=== PATIENT | female | born 1940 | race Caucasian/White ===

== ENCOUNTER 2024-12-14 21:04 | Outpatient (CLI) | payer MEDICARE, BC, SELFPAY | END 2024-12-14 21:05 | disposition home or self-care (01) | PROVIDERS: PCP Family Medicine; Visit Provider Family Medicine | DX: R41.82 Altered mental status, unspecified (principal) | CPT/HCPCS: A0425; A0427 ==

== ENCOUNTER 2024-12-14 21:44 | Inpatient (IN) | payer MEDICARE, BC, SELFPAY ==
[2024-12-14] VITALS (20 sets, daily range): BP systolic 159–212; BP diastolic 74–167; PULSE 66–81; RESP 12–25; TEMP 36.4; O2SAT 95–98; BMI 30.8
--- OUTSIDE RECORDS SUMMARY | 2024-12-14 21:46 | XMS_ITS | Clinical Summary ---
Author Organization [facility] Address [address] [place] [id number] Care Team Providers Care Prisoner Classification Interviewer Name Role Phone Meg Oconnell DO Primary Care Provider [phone] Allergies Active Allergy Reactions Criticality Noted Date Comments Lisinopril Cough Low 06/24/2013 cough Medications ASPIRIN 81 MG TAB, DELAYED RELEASEIndications: Unspecified essential hypertension Once daily 0 8 Active naproxen (ALEVE) 220 mg tablet Take 1 tablet by mouth every 12 hours if needed. 0 2 Active lancets (ACCU-CHEK MULTICLIX LANCET)Indications: Type II or unspecified type diabetes mellitus without mention of complication, not stated as uncontrolled (HC) Test once daily 102 Each 3 4 Active cholecalciferol (VITAMIN D-3) 2,000 unit capsule Take 1 capsule by mouth once daily. 0 7 Active cyanocobalamin (VITAMIN B12) 500 mcg tabletIndications:B 12 deficiency Take 1 tablet by mouth once daily. 90 tablet 1 0 Active blood-glucose meterIndications:Ty pe 2 diabetes mellitus with diabetic neuropathy, without long-term current use of insulin (HC) Dispense meter, test strips, lancets covered by pt ins. E11.9 NIDDM type II - Test 1 time/day 1 Device 1 Active durable medical equipment (DME)Indications:Ch ronic pain of right ankle,Posterior tibial tendon dysfunction (PTTD) of right lower extremity,Pes planus of both feet,Sinus tarsi syndrome of right foot Air lift, PTTD brace, medium, right, Ref: 02PMR 1 Each 1 Active blood sugar diagnostic (Contour Next Test Strips) stripIndications:Ty pe 2 diabetes mellitus with diabetic neuropathy, without long-term current use of insulin (HC) TEST 1 TIME A DAY 100 Each 3 1 Active atenoloL (TENORMIN) 50 mg tabletIndications:E ssential hypertension Take 1 Tablet (50 mg) by mouth once daily. 90 Tablet 3 5 Active chlorthalidone (HYGROTON) 25 mg tabletIndications:E ssential hypertension Take 1 Tablet (25 mg) by mouth once daily. 90 Tablet 3 5 Active cloNIDine HCL (CATAPRES) 0.2 mg tabletIndications:E ssential hypertension Take 1 Tablet (0.2 mg) by mouth two times daily. 180 Tablet 3 5 Active losartan (COZAAR) 100 mg tabletIndications:E ssential hypertension Take 1 Tablet (100 mg) by mouth once daily. 90 Tablet 3 5 Active potassium chloride (Klor-Con M20) 20 mEq extended-release tablet (part/cryst)Indicat ions:Essential hypertension TAKE 1 TABLET BY MOUTH ONCE DAILY WITH A MEAL. TAKE EXTRA TABLET TWICE A WEEK IF NEEDED. 30 Tablet 5 Active pravastatin (PRAVACHOL) 10 mg tabletIndications:H yperlipidemia, unspecified hyperlipidemia type Take 1 Tablet (10 mg) by mouth at bedtime. 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 Unspecified hereditary and idiopathic peripheral neuropathy 03/15/2009 Actinic keratosis 03/02/2008 Overview (03/02/2008): Left forearm. Treated with N2 on 03/02/08 Osteoporosis 03/02/2008 Overview (07/26/2015): DEXA 2016 - Osteoporosis dexa 12/2006, normal except for one reading of -1.2 in hips, all others normal. Recheck 10-15 years. Unspecified essential hypertension 12/19/2006 Lipoma of other skin and subcutaneous tissue 05/2006 Overview (12/19/2006): lipoma left breast, biopsy on 12/28/05 Resolved Problems Problem Noted Date Diagnosed Date Resolved Date Vitamin D deficiency 03/15/2009 010 Encounters Date Type Department Care Team Description 12/13/2024 Refill [facility] [address] [place] [address] Meg Oconnell DO Refill Request (Klor-con M20) 09/26/2024 10:00 AM CDT Ancillary Procedure [facility] [address] [place] [address] 09/26/2024 Travel from Last 3 Months Immunizations Immunization Administration Dates Next Due COVID-19 VACCINE SPIKEVAX (M ODERNA 50MCG/0.5ML) 12YO+ PFS 07/09/2024,06/27/2023 COVID-19 vaccine (Pfizer-Bio NTech 30mcg/0.3mL) 12YO+ BIVALENT PF, MDV 03/17/2022 COVID-19 vaccine (Pfizer-Bio NTech 30mcg/0.3mL) PF, MDV 04/21/2021,08/10/2020,07/20/2020 Hepatitis A (Adult) 11/17/1999 Hepatitis B, Unspecified 06/29/2001,01/23/2001,0 12/21/2000 Influenza, High-dose Inactivated 018,03/02/2017,04/18/2016,2015,04/12/2015,04/22/2014 Influenza, High-dose Quadriv alent Inactivated 03/17/2022 Influenza, IIV3 (Age >=3 years) 03/11/20 13,02/05/2012,05/03/2011,2009,03/02/2008,03/05/2007 Influenza, IIV4 03/02/2020 Influenza, Inactivated AIIV4 (Age 65+ Years) Preserv Free 06/27/2023,04/21/2021,03/15/2020 Influenza, Inactivated IIV3 (Age 65+ Years) Preserv Free 07/09/2024,04/07/2019,03/14/2019 Pneumococcal Poly,23-Valent (Pneumovax) 12/13/2005 Pneumococcal conj 13-Valent (Prevnar 13) 04/05/2017,06/19/2014 Td (Age >=7 Years) 03/25/2003,09/19/1996 Tdap 05/03/2011 Zoster (Zostavax-ZVL, live) 10/14/2014 Family History Medical History Relation Name Comments Blood Disease Brother 2 brain anuerysm 2000 Blood Disease Father pulmonary embo lism 1971 Cancer-breast Mother Cancer-breast Other niece Relation Name Status Comments Brother 1 Brother 2 Father Mother Other Sister Alive Social History Tobacco Use Types Packs/Day Years Used Date Smoking Tobacco: Never Smokeless Tobacco: Never Tobacco Cessation:Counseling Given: Yes Alcohol Use Standard Drinks/Week Comments Yes 0 (1 standard drink = 0.6 oz pur e alcohol) occasional PHQ-2 Answer Date Recorded PHQ-2 TOTAL SCORE 0 07/09/2024 Social Connections Answer Date Recorded Do you often feel lonely or isolated from those around you? 0 07/09/2024 Financial Resource Strain Answer Date R ecorded Difficulty of Paying Living Expenses 3 07/09/2024 Difficulty of Paying Living Expenses Not on file 07/09/2024 Food Insecurity Answer Date Recorded Do you worry your food will run out before you are able to buy more? 1 07/09/2024 Transportation Needs Answer Date Record ed Does lack of transportation keep you from medica l appointments? 1 07/09/2024 Does lack of transportation keep you from work, meetings or getting things that you need? 1 07/09/2024 Housing Stability Answer Date Recorded What is your housing situation today? 1 07/09/2024 Utilities Answer Date Recorded Do you have trouble paying f or utilities (for example, heat, electricity, water, phone)? 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 Not on file Not on f ile Obstetrics History Para Term AB IAB SAB Ectopic Multiple Livin g Live Births 10 10 10 Date Outcome GA Total Labor Labor/2nd/3rd Weight Sex Type Anes PTL Reina A1 A5 Name Clin Para Para Para Para Para Para Para Para Para Para Last Filed Vital Signs Vital Sign Reading Time Taken Comments Blood Pressure 142/84 09/10/2024 10:11 AM CDT Pulse 65 09/10/2024 10:11 AM CDT Temperature 36.7 C (98.1 F) 09/18/2018 10:06 AM CDT Respiratory Rate 18 07/12/2015 10:12 AM [employer] Oxygen Saturation 99% 09/10/2024 10:11 AM CDT Inhaled Oxygen Concentration - - Weight 84.4 kg (186 lb) 09/10/2024 10:11 AM CDT Height 168.4 cm (5' 6.3) 07/09/2024 1:08 PM [employer] Body Mass Index 29.75 07/09/2024 1:08 PM [employer] Plan of Treatment Health Maintenance Due Date Last Done Comments Zoster (shingles) series for age 50+ (2 of 3) 12/09/2014 10/14/2014 RSV vaccine for adults or (1 - 1-dose 75+ series) 02/24/2015 Tetanus booster 05/03/2021 05/03/2011, 11/0 09/2002, 09/19/1996 COVID-19 vaccine series ( season) 2025 07/09/2024, 06/27/2023, 03/17/2022, Additional history exists Influenza Vaccine (#1) 2025 , 06/27/2023, 04/21/2021, Additional history exists BMI (ht and wt on same day) for age 18+ 07/09/2025 07/09/2024, 06/27/2023, 06/14/2022, Additional history exists Depression screening for age 12+ 07/09/2025 07/09/2024, 06/27/2023, 06/14/2022, Additional history exists Medicare Wellness for age 65+ 07/10/2025, 06/27/2023, 06/14/2022, Additional history exists Hepatitis B series for 19+ Completed 06/29, 01/23/2001, 12/21/2000 Pneumococcal series for age 50+ Completed 04/05/2017, 06/19/2014, 12/13/2005 DEXA/DXA scan for age 65+ Completed 2022, 07/15/2015, 12/27/2006 Procedures Procedure Name Priority Date/Time Associated Diagnosis Comments XR MAMMO NEHA BILAT SCREEN Routine 09/26/2024 10:15 AM CDT Visit for screening mammogram XR DXA BONE DENSITY 2 SITES AXIAL AND 1 SITE PERIPHERAL Routine 06/14/2022 12:20 PM [employer] Osteoporosis, unspecified osteoporosis type, unspecified pathological fracture presence from Last 3 Months or Most Recently Relevant to Health Maintenance Results * XR MAMMO NEHA BILAT SCREEN (09/26/2024 10:15 AM CDT) Anatomical Region Laterality Modality BREASTS, Breast Left, Breast Right Bilateral Mammography Impressions 09/26/2024 2:14 PM CDT There is no radiographic evidence for malignancy. Recommend annual mammograms. MAMMOGRAM ASSESSMENT: ACR 1 Negative PATIENTS: You will also receive a letter with your examination results in an easy to read format. If you have questions about your results, please contact your referring provider. Narrative 09/26/2024 2:14 PM CDT For Patients: As a result of the 21st Century Cures Act, medical imaging exams and procedure reports are released immediately into your electronic medical record. You may view this report before your referring provider. If you have questions, please contact your health care provider. XR MAMMO NEHA BILAT SCREEN [[id number]] CLINICAL HISTORY: This is an asymptomatic 84 y.o. patient. INDICATION FOR EXAM: Mammogram Screening. TECHNIQUE: CC and MLO views were obtained. This study was evaluated with the assistance of Computer-Aided Detection. Breast Tomosynthesis was used in interpretation. COMPARISON FILM: Yes 07/26/23 [facility] 11/06/19 [facility] FINDINGS: There are scattered areas of fibroglandular density. There are no dominant masses, suspicious micro calcifications or areas of architectural distortion. us Meg Oconnell DO MAMMO Final Result * (ABNORMAL) XR DXA BONE DENSITY 2 SITES AXIAL AND 1 SITE PERIPHERAL (06/14/2022 12:20 PM [employer]) Anatomical Region Laterality Modality LUMBAR SPINE Other Impressions 06/20/2022 7:52 AM [employer] Osteopenia. RECOMMENDATIONS: The National Osteoporosis Foundation recommends pharmacologic treatment for patients with T-scores of -2.5 or less, patients with prior history of fragility fractures, or patients with 10-year probability of greater than 3% at hips or greater than 20% of suffering major osteoporotic fractures. Recommend continued optimization of calcium and vitamin D intake through dietary means and/or supplementation and regular exercise. Repeat scan recommended in 3-5 years. Dariana Suárez PA-C [facility] 06/20/2022 Narrative 06/20/2022 7:52 AM [employer] For Patients: Results are automatically released to your [facility] account once available, in compliance with federal regulations. This means that you may see your results before your provider has had a chance to review them. Please allow 2-3 business days for your provider to comment on the results. XR DXA Bone Mineral Density (BMD) EXAM LOCATION: [address] [address] PATIENT NAME: Makayla Casas DATE OF : 1940 EXAM DATE: 06/14/2022 REQUESTING PROVIDER: Meg Oconnell DO GENDER AT : female HEIGHT: 5' 6.26 (06/14/2022) WEIGHT: 202 lb (06/14/2022) MENOPAUSAL STATUS: Postmenopausal RACE/ETHNICITY: White RISK FACTORS: Height Loss (2 inches or more) and White Race CURRENT MEDICATION FOR BONE LOSS: NONE INDICATION: Follow-up of existing osteoporosis and Post-Menopause COMPARISON DATE(S): 2015 DXA scans are compared to prior studies for a patient only when the two (or more) studies were performed on the same scanner. It is not possible to compare data generated on one scanner to data from another because there are not standards in DXA equipment. This applies even if the two scanners are made by the same cold roll inspector. PROCEDURE: Dual-energy x-ray absorptiometry performed with routine technique. Reporting is completed in the form of a T-score. The T-score represents the standard deviation from peak bone mass based on young healthy adult. A Z-score is used for diagnosis in premenopausal women, and for men under the age of 50. FINDINGS: RESULTS FEMUR Left femoral neck BMD: 0.741 g/cm2 T-Score: - 2.1 Z-Score: - 0.6 Change from prior in 2016: Decrease 3.0%. Right femoral neck BMD: 0.729 g/cm2 T-Score: - 2.2 Z-Score: - 0.7 Change from prior in 2016: Increase 10.1%. Left hip BMD: 0.791 g/cm2 T-Score: - 1.7 Z-Score: - 0.4 Change from prior in 2016: Decrease 6.6%. Right hip BMD: 0.795 g/cm2 T-Score: - 1.7 Z-Score: - 0.3 Change from prior in 2016: Increase 1.9%. RESULT FOREARM Left Forearm distal radius BMD: 0.509 g/cm2 T-Score: - 2.7 Z-Score: + 0.2 Change from prior: None WHO criteria: Normal: T-score at or above -1 SD Osteopenia: T-score between -1.1 and -2.4 SD Osteoporosis: T-score at or below -2.5 SD FRAX RISK CALCULATION (USED FOR OSTEOPENIA ONLY): 10-year probability of major osteoporotic fracture: 15.7%. 10-year probability of hip fracture: 5.0%. Meg Oconnell DO DEXA Final Result from Last 3 Months or Most Recently Relevant to Health Maintenance Insurance [employer] BLUE MR PB ONLY Care Teams Prisoner Classification Interviewer Relationship Specialty Start Date End Date Meg Oconnell DO [address] [place] [address] PCP - General Family Practice 12/01/22
--- OUTSIDE RECORDS SUMMARY | 2024-12-14 21:46 | XMS_ITS | Patient Health Record ---
Author Organization [facility] Address [address] [place] [address] Care Team Providers Care Supervisor Feed House Name Role Phone LEIDA STREETER Primary Care Provider Reason For Referral No Information Problems Problem Type SNOMED Code ICD Code Onset Dates Problem Status W/U Status Risk Notes Problem Primary hyperparathyroidism (44936205) Primary hyperparathyroidism (E21.0) 2014 Active confirmed [facility] [place] 3310- Plan Of Treatment No Information Insurance Providers Payer Name Payer Address Payer Phone Subscriber Number Group Number Insured Name Patient Relationship to Insured Coverage Start Date Coverage End Date [place] P[place]/PPC/FE P [address] [place] [address] [id number] Makayla Casas Self - patient is the insured MEDICARE [address] [place] [address] [id number] Makayla Casas Self - patient is the insured [place] P[place]/PPC/FE P [address] [place] [address] [phone] [id number] Makayla Casas Self - patient is the insured
--- NOTE | 2024-12-14 21:47 | CRLHL7_ITS ---
For Patients: As a result of the Century Cures Act, medical imaging exams and procedure reports are released immediately into your electronic medical record. You may view this report before your referring provider. If you have questions, please contact your health care provider. Indication: Slurring of speech and facial droop, resolved Technique: Noncontrast CT through the head with multiplanar reformats Comparison: None Findings: Brain: No acute hemorrhage. No acute infarct. No significant mass effect or midline shift. No gross evidence of a mass lesion or cerebral edema. There is a chronic appearing right temporal lobe infarct. Mild chronic sinus disease. Ventricles: No acute abnormality appreciated. Orbits, sinuses, mastoids: No acute abnormality appreciated. Calvarium and soft tissues: No acute abnormality appreciated. Impression: Chronic appearing right temporal lobe infarct and chronic senescent changes with no acute appearing intracranial abnormality appreciated. MRI recommended for further evaluation. Please note that all CT scans at this facility use dose modulation, iterative reconstruction, and/or weight-based dosing when appropriate to reduce radiation dose to as low as reasonably achievable. Dictated by Sven Leroy MD @ 12/14/2024 10:15:48 PM (Electronically Signed)
--- NOTE | 2024-12-14 22:38 | CRLHL7_ITS ---
For Patients: As a result of the Century Cures Act, medical imaging exams and procedure reports are released immediately into your electronic medical record. You may view this report before your referring provider. If you have questions, please contact your health care provider. INDICATION: Acute stroke, slurred speech, left facial droop. TECHNIQUE: CTA neck with contrast bolus tracking, 3D angiographic rendering using maximum intensity projection (MIP) and images permanently archived. FINDINGS: There is carotid atherosclerosis bilaterally. There is atherosclerotic plaque in the proximal right ICA resulting in a moderate stenosis, 60% by NASCET. There is atherosclerotic plaque in the proximal left ICA resulting in a mild stenosis, less than 50% by NASCET. There is no significant vertebral artery stenosis or dissection. The soft tissues of the neck are within normal limits. The cervical spine is in normal alignment. Degenerative changes are noted in the cervical spine. IMPRESSION: Moderate proximal right ICA stenosis, 60% by NASCET. Mild proximal left ICA stenosis, less than 50% by NASCET. Please note that all CT scans at this facility use dose modulation, iterative reconstruction, and/or weight-based dosing when appropriate to reduce radiation dose to as low as reasonably achievable. Dictated by Luis Miguel Cid MD @ 12/15/2024 6:16:47 AM (Electronically Signed)
--- NOTE | 2024-12-14 22:38 | CRLHL7_ITS ---
For Patients: As a result of the Century Cures Act, medical imaging exams and procedure reports are released immediately into your electronic medical record. You may view this report before your referring provider. If you have questions, please contact your health care provider. INDICATION: Acute stroke, slurred speech, left facial droop. TECHNIQUE: CTA head with contrast bolus tracking, 3D angiographic rendering using maximum intensity projection (MIP) and images permanently archived. FINDINGS: There is a short-segment thromboembolic occlusion of the anterior right M2 with perhaps partially occlusive thrombus in the posterior right M2. The intracranial left carotid and posterior circulations fill normally. No aneurysm is identified. IMPRESSION: Short-segment thromboembolic occlusion of the anterior right M2 with perhaps partially occlusive thrombus in the posterior right M2. Preliminary findings were reported to Dr. Garcia at 2325 hours on 12/14/2024. Please note that all CT scans at this facility use dose modulation, iterative reconstruction, and/or weight-based dosing when appropriate to reduce radiation dose to as low as reasonably achievable. Dictated by Luis Miguel Cid MD @ 12/15/2024 6:11:47 AM (Electronically Signed)
[2024-12-14 22:48] LABS: Chloride* 104 mmol/L (96-114); Hematocrit 36.7 % (33.0-51.0); Hemoglobin* 12.3 gm/dL (12.0-16.0); Immature Granulocytes Abs Auto 0.06 K/uL (0.00-0.30); Immature Granulocytes Pct Auto 1.1 %; Mean Corpuscular HGB Conc 34 gm/dL (32-36); Mean Corpuscular Hemoglobin 28 pg (26-34); Mean Corpuscular Volume 85 fL (80-100); RDW Coefficient of Variation % 13.5 % (11.5-15.5); Red Blood Count 4.34 m/uL (4.00-5.20); White Blood Count* 5.56 K/uL (4.50-11.00)
[2024-12-14 22:49] LABS: Potassium* 3.0 mmol/L (3.6-5.1); Sodium* 137 mmol/L (135-149)
[2024-12-14 22:51] LABS: Blood Urea Nitrogen* 17 mg/dL (7-30); Creatinine* 1.0 mg/dL (0.5-1.5); Est. Creatinine Clearance* 39.20; Estimated Glomerular Filt Rate 56 ml/min
[2024-12-14 22:52] LABS: Anion Gap 11 mEq/L (7-15); Calcium* 10.1 mg/dL (8.4-10.6); Carbon Dioxide* 22 mmol/L (20-32); Glucose* 205 mg/dL (60-115); Lymphocytes Absolute Auto 1.00 K/uL (0.90-2.90)
[2024-12-14 22:53] LABS: Slide Review Reflex No
[2024-12-14 23:00] LABS: INR 0.95 (0.91-1.10); Prothrombin Time 13.5 Seconds
--- OUTSIDE RECORDS SUMMARY | 2024-12-14 23:07 | XMS_ITS | Patient Health Record ---
Author Organization [facility] Address [address] [place] [address] Care Team Providers Care Straightening Machine Operator Name Role Phone LEIDA STREETER Primary Care Provider [phone] Reason For Referral No Information Problems Problem Type SNOMED Code ICD Code Onset Dates Problem Status W/U Status Risk Notes Problem Primary hyperparathyroidism (83728495) Primary hyperparathyroidism (E21.0) 2014 Active confirmed [facility] [place] [place]10- Plan Of Treatment No Information Insurance Providers Payer Name Payer Address Payer Phone Subscriber Number Group Number Insured Name Patient Relationship to Insured Coverage Start Date Coverage End Date [place] P [address] [place] [address] [id number] Makayla Casas Self - patient is the insured MEDICARE [address] [place] [address] [phone] [id number] Makayla Casas Self - patient is the insured [place] P [address] [place] [address] [id number] Makayla Casas Self - patient is the insured
--- NOTE | 2024-12-14 23:42 | ED_ITS ---
HPI - General Adult General Chief complaint: Neuro Symptoms/Altered Deficit Stated complaint: stroke like symptoms Time Seen by Provider: 12/14/24 21:47 History of Present Illness HPI narrative: [facility] with c/o sudden onset slurred speech confusion, left sided facial droop, left arm weakness, a period of staring off that began at 2030 today. Patient was talking on the phone with her daughter, when she began slurring her words and had some confusion. Patient's family drove to her house and found her to have left facial and upper extremity weakness - leg was not assessed by family. Patient 's symptoms began to resolve prior to EMS arrival. Patient arrives with complete resolution of symptoms. GCS 15. EMS BGL 198 . Patient denies fall/ trauma. Patient denies recent illness/ fever/ cough/diarrhea. Patient denies pain. Stroke alert called by EMS en route. Patient to CT immediately upon arrival. 84-year-old woman brought to the emergency department by EMS with concern of a stroke. Information clarified with family later is that she was on the phone at about 830 p.m. with her daughter who noted that she was suddenly slurring her words. Makayla would blame it on poor denture fitting but apparently this was quite a change. Over the last 2 weeks maybe has been feeling a little bit of pressure perhaps at the top of her head intermittently. Both daughters arrived shortly to see also that Makayla was drooping the left side of her face. All of th jonah symptoms apparently have resolved in about 30 minutes. Arrives by EMS is noted and I meet her in the back rayo about an hour and 15 minutes after initial onset and appears asymptomatic. I ask about extremity symptoms and was noted to have symptoms isolated to the face. But with later questioning apparently was thought to have had some clumsiness of her left arm been somewhat weak in the left arm over the same time. Related Data Allergies Allergy/AdvReac Type Severity Reaction Status Date / Time lisinopril Allergy Mild Cough Verified 12/14/24 23:22 Review of Systems Status of ROS: Reports: 6 or more systems reviewed and unremarkable except as noted in History and below [facility] Medical History Actinic keratosis ?L57.0 - Actinic keratosis (ICD-10) Hematuria ?R31.9 - Hematuria, unspecified (ICD-10) Unspecified hereditary and idiopathic peripheral neuropathy ?G60.9 - Hereditary and idiopathic neuropathy, unspecified (ICD-10) RLS (restless legs syndrome) ?G25.81 - Restless legs syndrome (ICD-10) Obesity ?E66.9 - Obesity, unspecified (ICD-10) Osteoporosis ?M81.0 - Age-related osteoporosis without current pathological fracture (ICD- 10) Type 2 diabetes mellitus with diabetic neuropathy, without long-term current use of insulin ?E11.40 - Type 2 diabetes mellitus with diabetic neuropathy, unspecified (ICD-10) Venous insufficiency ?I87.2 - Venous insufficiency (chronic) (peripheral) (ICD-10) HTN (hypertension) ?I10 - Essential (primary) hypertension (ICD-10) Surgical History Status post right knee replacement ?Z96.651 - Presence of right artificial knee joint (ICD-10) H/O section ?Z98.891 - History of uterine scar from previous surgery (ICD-10) Hx laparoscopic cholecystectomy ?Z90.49 - Acquired absence of other specified parts of digestive tract (ICD- 10) Social History What is your current living situation?: I presently have a place to live Problems where you live: no known problems Problems where you live details: na In the past 12 months, utilities in danger of being shut off: no In past 12 months, lack of transportation kept you from medical appts, meetings, work, or getting things needed for daily living: no In the past 12 mos, have been you worried that your food would run out before you had money to buy more?: never true In the past 12 mos, the food you bought just didn't last and you didn't have money to buy more?: never true Highest level of school completed/degree received: high school graduate Smoking Status: Never smoker Do you use any of these nicotine containing products: None Second hand tobacco smoke exposure: No How often do you have a drink containing alcohol: never AUDIT-C Alcohol total score: 0 Non-prescribed substance use: denies use How often does anyone, including family, friends and others, physically hurt you : never How often does anyone, including family, friends and others, insult or talk down to you: never How often does anyone, including family, friends and others, threaten you with harm: never How often does anyone, including family, friends and others, scream or curse at you: never service: No Exam Narrative: Exam Narrative: Pleasant. NAD. Fully alert. Head is atraumatic. Cranial nerves 2-12 are intact. Oropharynx with dentures in place. Appears to be articulating clearly. Moving all extremities without notable difficulty. Is initially evaluated in the rayo prior to CT. Assessing again with clear lungs. Heart in regular rhythm with some ectopic beats. Abdomen is overweight soft nontender. Lower extremities without edema. She is well-perfused. Does not appear to have any deficits. Blood pressure is noted to be moderately elevated. Const: Vital Signs, click to edit/add: Vital Signs - 24 hr 12/14/24 21:44 12/14/24 21:44 12/14/24 21:55 Temperature 97.6 F Pulse Rate 74 Pulse Rate [Left P ulse Oximeter] 80 Respiratory Rate 16 Blood Pressure 206/106 H Blood Pressure [Le ft Upper Arm] 206/106 H Pulse Oximetry 98 98 95 Oxygen Delivery Me thod Room Air Room Air 12/14/24 21:56 12/14/24 22:00 12/14/24 22:02 Temperature Pulse Rate 79 75 78 Pulse Rate [Left P ulse Oximeter] Respiratory Rate 22 19 17 Blood Pressure 197/117 H Blood Pressure [Le ft Upper Arm] Pulse Oximetry 97 97 98 Oxygen Delivery Me thod 12/14/24 22:14 12/14/24 22:15 12/14/24 22:17 Temperature Pulse Rate Pulse Rate [Left P ulse Oximeter] Respiratory Rate 20 14 Blood Pressure 189/167 H Blood Pressure [Le ft Upper Arm] Pulse Oximetry 98 Oxygen Delivery Me thod 12/14/24 22:30 12/14/24 22:32 12/14/24 22:45 Temperature Pulse Rate 69 72 81 Pulse Rate [Left P ulse Oximeter] Respiratory Rate 17 25 H 25 H Blood Pressure 179/84 H Blood Pressure [Le ft Upper Arm] Pulse Oximetry 95 96 95 Oxygen Delivery Me thod 12/14/24 22:47 12/14/24 23:00 12/14/24 23:02 Temperature Pulse Rate 68 69 Pulse Rate [Left P ulse Oximeter] Respiratory Rate 19 16 Blood Pressure 212/99 H 188/83 H Blood Pressure [Le ft Upper Arm] Pulse Oximetry 96 98 Oxygen Delivery Me thod 12/14/24 23:26 12/14/24 23:28 12/14/24 23:30 Temperature Pulse Rate 71 72 70 Pulse Rate [Left P ulse Oximeter] Respiratory Rate 23 19 Blood Pressure 168/116 H Blood Pressure [Le ft Upper Arm] Pulse Oximetry 98 97 98 Oxygen Delivery Me thod 12/14/24 23:33 12/14/24 23:45 12/14/24 23:57 Temperature Pulse Rate 69 66 Pulse Rate [Left P ulse Oximeter] Respiratory Rate 12 18 Blood Pressure 174/75 H 159/74 H Blood Pressure [Le ft Upper Arm] Pulse Oximetry 98 98 Oxygen Delivery Me thod 12/15/24 00:00 12/15/24 00:02 12/15/24 00:15 Temperature Pulse Rate 61 Pulse Rate [Left P ulse Oximeter] Respiratory Rate 20 24 16 Blood Pressure 150/80 H Blood Pressure [Le ft Upper Arm] Pulse Oximetry 96 Oxygen Delivery Me thod 12/15/24 00:16 12/15/24 00:30 12/15/24 00:31 Temperature Pulse Rate 63 60 61 Pulse Rate [Left P ulse Oximeter] Respiratory Rate 16 19 19 Blood Pressure 149/71 H 150/75 H Blood Pressure [Le ft Upper Arm] Pulse Oximetry 98 99 98 Oxygen Delivery Me thod 12/15/24 00:45 12/15/24 00:46 12/15/24 01:00 Temperature Pulse Rate 63 67 63 Pulse Rate [Left P ulse Oximeter] Respiratory Rate 20 19 19 Blood Pressure 157/75 H Blood Pressure [Le ft Upper Arm] Pulse Oximetry 97 97 99 Oxygen Delivery Me thod 12/15/24 01:01 12/15/24 01:15 12/15/24 01:16 Temperature Pulse Rate 63 60 60 Pulse Rate [Left P ulse Oximeter] Respiratory Rate 19 15 Blood Pressure 148/77 H 141/73 H Blood Pressure [Le ft Upper Arm] Pulse Oximetry 98 99 99 Oxygen Delivery Me thod Documenting provider has reviewed patient's vital signs: yes Course Vital Signs Vital signs: Initial Vital Signs Temperature 97.6 F 12/14/24 21:44 Temperature Source Temporal Artery Scan 12/14/24 21:44 Pulse Rate 80 12/14/24 21:44 Respiratory Rate 16 12/14/24 21:44 Blood Pressure 206/106 H 12/14/24 21:44 Blood Pressure Mean 139 H 12/14/24 21:44 Blood Pressure Position Semi-Fowlers 12/14/24 21:44 Pulse Oximetry 98 12/14/24 21:44 Oxygen Delivery Method Room Air 12/14/24 21:44 Vital Signs Temperature 97.6 F 12/14/24 21:44 Pulse Rate 80 12/14/24 21:44 Respiratory Rate 16 12/14/24 21:44 Blood Pressure 206/106 H 12/14/24 21:44 Pulse Oximetry 98 12/14/24 21:44 Oxygen Delivery Method Room Air 12/14/24 21:44 Temperature 98.2 F 12/15/24 03:35 Pulse Rate 69 12/15/24 03:35 Respiratory Rate 18 12/15/24 03:35 Blood Pressure 182/125 H 12/15/24 03:35 Pulse Oximetry 94 12/15/24 03:35 Oxygen Delivery Method Room Air 12/15/24 03:35 Medications Administered Medications: Generic Name Dose Route Start Last Admin Trade Name Freq PRN Reason Stop Dose Admin Ceftriaxone Sodium 2 gm/ 100 mls @ 200 mls/hr 12/15/24 05:00 12/15/24 06:03 Sodium Chloride IVPB Infused Q24H GIFTY Infusion Discontinued Medications Generic Name Dose Route Start Last Admin Trade Name Freq PRN Reason Stop Dose Admin Aspirin 81 mg 12/14/24 23:38 12/15/24 00:13 Aspirin 81 Mg Tablet Ec PO 12/14/24 23:39 81 mg ONCE ONE Administration Clonidine HCl 0.2 mg 12/14/24 22:34 12/14/24 23:00 Clonidine Hcl 0.1 Mg Tablet PO 12/14/24 22:35 0.2 mg ONCE ONE Administration Clopidogrel Bisulfate 300 mg 12/14/24 23:38 12/15/24 00:12 Clopidogrel 300 Mg Tablet PO 12/14/24 23:39 300 mg ONCE ONE Administration Sodium Chloride 500 mls @ 500 mls/hr 12/14/24 21:48 12/15/24 00:05 0.9 % Sodium Chloride 500 Ml IV 12/14/24 22:47 500 mls/hr .Q1H ONE Administration Potassium Chloride 40 meq 12/15/24 05:23 12/15/24 06:16 Potassium Chloride 10 Meq Capsule Er PO 12/15/24 05:24 40 meq ONCE ONE Administration Medical Decision Making MDM Narrative Medical decision making narrative: Noting elevated blood pressure. Due for clonidine dosing in the evening. This was given. Asymptomatic with initial evaluation. Is directed to head CT. By my independent read do not appreciate any acute abnormality but appears to have some changes of encephalomalacia in the right parietal lobe. This could be consistent with symptoms as reported by family. Unknown to have had a prior CVA. Power when out limiting ability to transmit images. Did bring back to the room as asymptomatic and initiated IV placement and slight IV hydration and collecting labs. Did contact than Stroke Neuro and as expected will be going for CTA head neck. Based on findings here of occlusions in the right MCA looks like M2 to M3 segments and as a symptomatic, recommended for aspirin and loading with Plavix and admission for MRI. Uncertain timing of MCA changes. Permissive blood pressures to 220/110 Reassuring labs. With family concern did collect urine as well. This urine does have presence of increased white cells and only 1+ leukocyte esterase. I would withhold treatment pending urine culture as is asymptomatic otherwise in this regard. Was called back into the room for family reporting slurring of speech and some drooping of the left side of her face. I go into the room within about 30 seconds. Appears asymptomatic at this time. This did occur again with absence of symptoms by my interpretation. Discussed this again with Stroke Neuro and clarified that left arm symptoms had also been noticed. Plan still be to admit for close monitoring. Recommending longer duration of neurochecks if able. Radiology over-read below Indication: Slurring of speech and facial droop, resolved Technique: Noncontrast CT through the head with multiplanar reformats Comparison: None Findings: Brain: No acute hemorrhage. No acute infarct. No significant mass effect or midline shift. No gross evidence of a mass lesion or cerebral edema. There is a chronic appearing right temporal lobe infarct. Mild chronic sinus disease. Ventricles: No acute abnormality appreciated. Orbits, sinuses, mastoids: No acute abnormality appreciated. Calvarium and soft tissues: No acute abnormality appreciated. Impression: Chronic appearing right temporal lobe infarct and chronic senescent changes with no acute appearing intracranial abnormality appreciated. MRI recommended for further evaluation. Please note that all CT scans at this facility use dose modulation, iterative reconstruction, and/or weight-based dosing when appropriate to reduce radiation dose to as low as reasonably achievable. Dictated by Sven Leroy MD @ 12/14/2024 10:15:48 PM INDICATION: Acute stroke, slurred speech, left facial droop. TECHNIQUE: CTA head with contrast bolus tracking, 3D angiographic rendering using maximum intensity projection (MIP) and images permanently archived. FINDINGS: There is a short-segment thromboembolic occlusion of the anterior right M2 with perhaps partially occlusive thrombus in the posterior right M2. The intracranial left carotid and posterior circulations fill normally. No aneurysm is identified. IMPRESSION: Short-segment thromboembolic occlusion of the anterior right M2 with perhaps partially occlusive thrombus in the posterior right M2. Preliminary findings were reported to Dr. Garcia at 2325 hours on 12/14/2024. Please note that all CT scans at this facility use dose modulation, iterative reconstruction, and/or weight-based dosing when appropriate to reduce radiation dose to as low as reasonably achievable. Dictated by Luis Miguel Cid MD @ 12/15/2024 6:11:47 AM INDICATION: Acute stroke, slurred speech, left facial droop. TECHNIQUE: CTA neck with contrast bolus tracking, 3D angiographic rendering using maximum intensity projection (MIP) and images permanently archived. FINDINGS: There is carotid atherosclerosis bilaterally. There is atherosclerotic plaque in the proximal right ICA resulting in a moderate stenosis, 60% by NASCET. There is atherosclerotic plaque in the proximal left ICA resulting in a mild stenosis, less than 50% by NASCET. There is no significant vertebral artery stenosis or dissection. The soft tissues of the neck are within normal limits. The cervical spine is in normal alignment. Degenerative changes are noted in the cervical spine. IMPRESSION: Moderate proximal right ICA stenosis, 60% by NASCET. Mild proximal left ICA stenosis, less than 50% by NASCET. Please note that all CT scans at this facility use dose modulation, iterative reconstruction, and/or weight-based dosing when appropriate to reduce radiation dose to as low as reasonably achievable. Dictated by Luis Miguel Cid MD @ 12/15/2024 6:16:47 AM Lab Data Lab results reviewed: Yes I reviewed the patient's lab results Labs: Lab Results 12/14/24 12/14/24 Range/Units 22:22 23:20 WBC 5.56 (4.50-11.00) K/uL RBC 4.34 (4.00-5.20) m/uL Hgb 12.3 (12.0-16.0) gm/dL Hct 36.7 (33.0-51.0) % MCV 85 (80-100) fL MCH 28 (26-34) pg MCHC 34 (32-36) gm/dL RDW Coeff of Camron 13.5 (11.5-15.5) % Plt Count 193 (140-440) K/uL Neut % (Auto) 67.7 (42.0-72.0) % Lymph % (Auto) 18.2 L (20-44) % [place] % (Auto) 9.7 (0.0-11.0) % Eos % (Auto) 2.9 (0.0-7.0) % Baso % (Auto) 0.4 (0.0-3.0) % Neut # (Auto) 3.77 (1.7-7.0) K/uL Lymph # (Auto) 1.00 (0.90-2.90) K/uL [place] # (Auto) 0.50 (0.00-0.90) K/UL Eos # (Auto) 0.16 (0.00-0.50) K/uL Baso # (Auto) 0.02 (0.00-0.30) K/uL Abs Immat Gran (auto) 0.06 (0.00-0.30) K/uL Imm/Tot Granulo (auto) 1.1 % INR 0.95 (0.91-1.10) APTT 24 (23-33) Seconds Sodium 137 (135-149) mmol/L Potassium 3.0 L (3.6-5.1) mmol/L Chloride 104 (96-114) mmol/L Carbon Dioxide 22 (20-32) mmol/L Anion Gap 11 (7-15) mEq/L BUN 17 (7-30) mg/dL Creatinine 1.0 (0.5-1.5) mg/dL Estimated Creat Clear 39.20 Estimated GFR 56 ml/min Glucose 205 H (60-115) mg/dL Calcium 10.1 (8.4-10.6) mg/dL Troponin I < 0.01 (0.01-0.04) ng/mL Urine Color Yellow (Yellow) Urine Appearance Slightly Cloudy A (Clear) Urine pH 5.5 (5.0-8.5) Ur Specific [place] 1.020 (1.000-1.030) Urine Protein Negative (Negative) Urine Glucose (UA) Negative (Negative) Urine Ketones Negative (Negative) Urine Blood Trace-intact A (Negative) Urine Nitrite Negative (Negative) Urine Bilirubin Negative (Negative) Urine Urobilinogen 0.2 (0.2-1.0) Ur Leukocyte Esterase 1+ A (Negative) Urine RBC 0-2 (0-2) Urine WBC 10-25 A (0-5) Ur Squamous Epith Cells Few (None-Few) Urine Bacteria Few A (None) ECG Data Attestation: I personally reviewed and interpreted this ECG as follows: (Sinus with sinus arrhythmia. First-degree AV block. Rate of 93) Critical Care Time Critical Care Time Critical Care Time: Yes Attestation: The patient required my highest level preparedness to intervene emergently and I personally spent this critical care time directly and personally managing the patient. This critical care time included: Obtaining a history; Examining the patient; Pulse oximetry; Ordering and reviewing of studies; Arranging urgent treatment with development of a management plan; Evaluation of patients response to treatment; Frequent reassessment discussions with other providers. This critical care time was performed to assess and manage the high probability of imminent life-threatening deterioration that could result in multiorgan failure. It was exclusive of separate billable procedures and treating other patients and teaching time. Total Critical Care Time in Minutes: 80 Discharge Plan Discharge Clinical Impression: Stroke-like symptoms Patient Disposition: Admitted As Observation Condition: Stable
[2024-12-15] VITALS (25 sets, daily range): BP systolic 127–185; BP diastolic 50–131; PULSE 60–82; RESP 15–24; TEMP 36.4–36.8; O2SAT 94–99
[2024-12-15 00:01] LABS: Appearance Urine Slightly Cloudy (Clear)
[2024-12-15] MEDS: 0.9 % SODIUM CHLORIDE 500 ML 500 ML IV (00:05)
[2024-12-15] MEDS: CLOPIDOGREL 300 MG TABLET PO (00:12)
[2024-12-15] MEDS: ASPIRIN 81 MG TABLET EC PO ×2 (00:13→09:44)
--- NOTE | 2024-12-15 04:27 | CRLHL7_ITS ---
For Patients: As a result of the Cures Act, medical imaging exams and procedure reports are released immediately into your electronic medical record. You may view this report before your referring provider. If you have questions, please contact your health care provider. Indication: TIA/CVA. Technique: Noncontrast sagittal T1 weighted, axial FLAIR, axial T2 weighted, and axial diffusion weighted sequences are provided. Comparison: CT 12/14/2024 Findings: Small focus of diffusion restriction and T2 prolongation in the right middle frontal gyrus and head of the right caudate nucleus. Moderate region of diffusion restriction, encephalomalacia, and multiple susceptible artifacts in the right lateral temporal lobe. No mass effect or midline shift. No hydrocephalus. No suspicious extra-axial collection. Multiple scattered foci of T2 prolongation in the supratentorial white matter nonspecific but likely due to chronic small vessel ischemic changes. Expected intracranial vascular flow voids are preserved. The calvarium is intact. Scalp soft tissues are grossly normal. The orbits are unremarkable. Impression: 1. Acute ischemic infarcts in the right head of caudate nucleus and right middle frontal gyrus. 2. Acute on chronic ischemic infarcts in the right temporal lobe adjacent to a large region of encephalomalacia. Multiple foci of tract likely due to petechial hemorrhage. Dictated by Raul Palma MD @ 12/15/2024 8:51:23 AM (Electronically Signed)
--- NOTE | 2024-12-15 04:32 | W.PM.TELEH&P ---
Telehealth- H&P: HPI History of Present Illness Date Seen: 12/15/24 Chief complaint: stroke like symptoms Narrative: Makayla Casas is seen as an Interactive Telehealth visit. Makayla Casas is a 84 year old female with past medical history significant for hypertension, diet-controlled type 2 diabetes, venous insufficiency, obesity, restless leg syndrome who presented to emergency department for evaluation of strokelike symptoms. Patient reports she was talking to her daughter last night around 8:30 PM. Daughter noticed that her speech was slurred and she also noted some confusion. Daughter drove to her house with her own daughter and noticed left facial droop and also left upper extremity weakness. Symptoms resolved by the time EMS arrived. Patient herself is otherwise denying any complaints. She denies any fever or chills. She has no headache, dizziness, chest pain, abdominal pain, nausea or vomiting. Workup in the emergency department showed white count 5.5, hemoglobin 12.3, hematocrit 36.7, platelets 193. BMP was unremarkable except potassium was 3.0 and glucose 205. Initial troponin 0.01, UA showed 1+ leukocyte Estrace, WBC 10-25 with few bacteria's in the urine. CT head showed chronic appearing right temporal lobe infarct and chronic changes with no acute appearing intracranial abnormality appreciated. MRI recommended for further evaluation. Neurology was consulted. They recommended admission with MRI brain. They also recommended one-time dose of Plavix while patient was in the ED. And to continue with aspirin and Plavix. Review of Systems Narrative: Complete ROS was performed, pertinent positives and negatives per HPI. [facility] Medical History Actinic keratosis ?L57.0 - Actinic keratosis (ICD-10) Hematuria ?R31.9 - Hematuria, unspecified (ICD-10) Unspecified hereditary and idiopathic peripheral neuropathy ?G60.9 - Hereditary and idiopathic neuropathy, unspecified (ICD-10) RLS (restless legs syndrome) ?G25.81 - Restless legs syndrome (ICD-10) Obesity ?E66.9 - Obesity, unspecified (ICD-10) Osteoporosis ?M81.0 - Age-related osteoporosis without current pathological fracture (ICD-10) Type 2 diabetes mellitus with diabetic neuropathy, without long-term current use of insulin ?E11.40 - Type 2 diabetes mellitus with diabetic neuropathy, unspecified (ICD-10) Venous insufficiency ?I87.2 - Venous insufficiency (chronic) (peripheral) (ICD-10) HTN (hypertension) ?I10 - Essential (primary) hypertension (ICD-10) Surgical History Status post right knee replacement ?Z96.651 - Presence of right artificial knee joint (ICD-10) H/O section ?Z98.891 - History of uterine scar from previous surgery (ICD-10) Hx laparoscopic cholecystectomy ?Z90.49 - Acquired absence of other specified parts of digestive tract (ICD-10) Social History What is your current living situation?: I presently have a place to live Problems where you live: no known problems Problems where you live details: na In the past 12 months, utilities in danger of being shut off: no In past 12 months, lack of transportation kept you from medical appts, meetings, work, or getting things needed for daily living: no In the past 12 mos, have been you worried that your food would run out before you had money to buy more?: never true In the past 12 mos, the food you bought just didn't last and you didn't have money to buy more?: never true Highest level of school completed/degree received: high school graduate Smoking Status: Never smoker Do you use any of these nicotine containing products: None Second hand tobacco smoke exposure: No How often do you have a drink containing alcohol: never AUDIT-C Alcohol total score: 0 Non-prescribed substance use: denies use How often does anyone, including family, friends and others, physically hurt you: never How often does anyone, including family, friends and others, insult or talk down to you: never How often does anyone, including family, friends and others, threaten you with harm: never How often does anyone, including family, friends and others, scream or curse at you: never service: No Meds Home Medications and Allergies Allergies Allergy/AdvReac Type Severity Reaction Status Date / Time lisinopril Allergy Mild Cough Verified 12/14/24 23:22 Exam Narrative Exam Narrative: Physical Exam GENERAL: ?vital signs reviewed, well developed and nourished, in no distress HEENT: pupils are equal round and reactive to light, extraocular movements are grossly within normal limits and oral mucosa is moist. NECK: Supple without lymphadenopathy or thyromegaly according to nursing staff examination observation HEART: Regular rate and rhythm without any rubs, murmurs, or gallops. LUNGS: Clear to auscultation bilaterally with good air movement throughout ABDOMEN: Observation from nurse assisted exam, abdomen appears soft, nontender, and nondistended with Positive bowel sounds noted. EXTREMITIES: Strength and sensation is observed to be grossly within normal limits in the upper and lower extremities.? No focal strength deficit is observed. Neuro: NO facial droop. EOMI, PERLLA, no facial asymmetry, shoulder shrug intact, MS equal b/l upper and lower ext (pt able to lift both legs and arms against gravity) SKIN:? Observed warm and dry with color normal Const Vital Signs, click to edit/add: Vital Signs - 24 hr 12/14/24 21:44 12/14/24 21:44 12/14/24 21:55 Temperature 97.6 F Pulse Rate 74 Pulse Rate [Left Pulse Oximeter] 80 Pulse Rate [Pulse Oximeter] Respiratory Rate 16 Blood Pressure 206/106 H Blood Pressure [Left Upper Arm] 206/106 H Blood Pressure [left forearm] Pulse Oximetry 98 98 95 Oxygen Delivery Method Room Air Room Air 12/14/24 21:56 12/14/24 22:00 12/14/24 22:02 Temperature Pulse Rate 79 75 78 Pulse Rate [Left Pulse Oximeter] Pulse Rate [Pulse Oximeter] Respiratory Rate 22 19 17 Blood Pressure 197/117 H Blood Pressure [Left Upper Arm] Blood Pressure [left forearm] Pulse Oximetry 97 97 98 Oxygen Delivery Method 12/14/24 22:14 12/14/24 22:15 12/14/24 22:17 Temperature Pulse Rate Pulse Rate [Left Pulse Oximeter] Pulse Rate [Pulse Oximeter] Respiratory Rate 20 14 Blood Pressure 189/167 H Blood Pressure [Left Upper Arm] Blood Pressure [left forearm] Pulse Oximetry 98 Oxygen Delivery Method 12/14/24 22:30 12/14/24 22:32 12/14/24 22:45 Temperature Pulse Rate 69 72 81 Pulse Rate [Left Pulse Oximeter] Pulse Rate [Pulse Oximeter] Respiratory Rate 17 25 H 25 H Blood Pressure 179/84 H Blood Pressure [Left Upper Arm] Blood Pressure [left forearm] Pulse Oximetry 95 96 95 Oxygen Delivery Method 12/14/24 22:47 12/14/24 23:00 12/14/24 23:02 Temperature Pulse Rate 68 69 Pulse Rate [Left Pulse Oximeter] Pulse Rate [Pulse Oximeter] Respiratory Rate 19 16 Blood Pressure 212/99 H 188/83 H Blood Pressure [Left Upper Arm] Blood Pressure [left forearm] Pulse Oximetry 96 98 Oxygen Delivery Method 12/14/24 23:26 12/14/24 23:28 12/14/24 23:30 Temperature Pulse Rate 71 72 70 Pulse Rate [Left Pulse Oximeter] Pulse Rate [Pulse Oximeter] Respiratory Rate 23 19 Blood Pressure 168/116 H Blood Pressure [Left Upper Arm] Blood Pressure [left forearm] Pulse Oximetry 98 97 98 Oxygen Delivery Method 12/14/24 23:33 12/14/24 23:45 12/14/24 23:57 Temperature Pulse Rate 69 66 Pulse Rate [Left Pulse Oximeter] Pulse Rate [Pulse Oximeter] Respiratory Rate 12 18 Blood Pressure 174/75 H 159/74 H Blood Pressure [Left Upper Arm] Blood Pressure [left forearm] Pulse Oximetry 98 98 Oxygen Delivery Method 12/15/24 00:00 12/15/24 00:02 12/15/24 00:15 Temperature Pulse Rate 61 Pulse Rate [Left Pulse Oximeter] Pulse Rate [Pulse Oximeter] Respiratory Rate 20 24 16 Blood Pressure 150/80 H Blood Pressure [Left Upper Arm] Blood Pressure [left forearm] Pulse Oximetry 96 Oxygen Delivery Method 12/15/24 00:16 12/15/24 00:30 12/15/24 00:31 Temperature Pulse Rate 63 60 61 Pulse Rate [Left Pulse Oximeter] Pulse Rate [Pulse Oximeter] Respiratory Rate 16 19 19 Blood Pressure 149/71 H 150/75 H Blood Pressure [Left Upper Arm] Blood Pressure [left forearm] Pulse Oximetry 98 99 98 Oxygen Delivery Method 12/15/24 00:45 12/15/24 00:46 12/15/24 01:00 Temperature Pulse Rate 63 67 63 Pulse Rate [Left Pulse Oximeter] Pulse Rate [Pulse Oximeter] Respiratory Rate 20 19 19 Blood Pressure 157/75 H Blood Pressure [Left Upper Arm] Blood Pressure [left forearm] Pulse Oximetry 97 97 99 Oxygen Delivery Method 12/15/24 01:01 12/15/24 01:15 12/15/24 01:16 Temperature Pulse Rate 63 60 60 Pulse Rate [Left Pulse Oximeter] Pulse Rate [Pulse Oximeter] Respiratory Rate 19 15 Blood Pressure 148/77 H 141/73 H Blood Pressure [Left Upper Arm] Blood Pressure [left forearm] Pulse Oximetry 98 99 99 Oxygen Delivery Method 12/15/24 01:30 12/15/24 01:30 12/15/24 03:05 Temperature 98.0 F Pulse Rate 65 Pulse Rate [Left Pulse Oximeter] Pulse Rate [Pulse Oximeter] 72 Respiratory Rate 16 16 Blood Pressure Blood Pressure [Left Upper Arm] Blood Pressure [left forearm] 127/97 H Pulse Oximetry 98 98 Oxygen Delivery Method Room Air Room Air 12/15/24 03:35 Temperature 98.2 F Pulse Rate Pulse Rate [Left Pulse Oximeter] Pulse Rate [Pulse Oximeter] 69 Respiratory Rate 18 Blood Pressure Blood Pressure [Left Upper Arm] Blood Pressure [left forearm] 182/125 H Pulse Oximetry 94 Oxygen Delivery Method Room Air Hospitalist - H&P: Result Labs Labs: Short CBC 12/14/24 Range/Units 22:22 WBC 5.56 (4.50-11.00) K/uL Hgb 12.3 (12.0-16.0) gm/dL Hct 36.7 (33.0-51.0) % Plt Count 193 (140-440) K/uL BMP 12/14/24 22:22 Sodium 137 Potassium 3.0 L Chloride 104 Carbon Dioxide 22 BUN 17 Creatinine 1.0 Glucose 205 H Calcium 10.1 Cardiac Enzymes 12/14/24 Range/Units 22:22 Troponin I < 0.01 (0.01-0.04) ng/mL Urine 12/14/24 Range/Units 23:20 Urine Color Yellow (Yellow) Urine Appearance Slightly Cloudy A (Clear) Urine pH 5.5 (5.0-8.5) Ur Specific [place] 1.020 (1.000-1.030) Urine Protein Negative (Negative) Urine Glucose (UA) Negative (Negative) Assessment and Plan Assessment and plan (1) Stroke-like symptoms: Status: Acute Plan Patient is 84-year-old female with past medical history significant for hypertension, diet-controlled type 2 diabetes who is presenting to the emergency department with facial droop on the left side and slurred speech noted by family. CT head was done in the emergency department. CT head was also done. Neurology was consulted in the emergency department and recommended admission with MRI in the morning, aspirin and Plavix. CTA head showed short segment thromboembolic occlusion of the anterior right M2 with perhaps partially occlusive thrombus in the posterior right M2. Per ER provider these findings were discussed with neurology. They recommended aspirin Plavix and local monitoring with a MRI to follow-up. Plan - cont with cardiac monitoring - neuro checks Q4 hours - MRI brain in am. - Echo in am. - cont with aspirin and plavix as recommended by neurology. - consult neuro in am with results of MRI. - check lipid profile, hg A1c. - allow permissive HTN with goal sbp <210, Diastolic bp <110. hold home bp meds and treat as needed if bp running high. Pt does take clonidine which can cause reflex htn and difficult to maintain bp. # UTI - Pt can have symptoms likely even recrudescence of stroke symptoms from UTI - cont with Ceftriaxone 2 gm daily - f/u urine cultures # Hypokalemia - replete and recheck in am. # DVT proph - lovenox Telehealth visit: Today's History and Physical is via Interactive Telehealth by Dr. Catherine Lopez. Patient is located at [facility]. [facility]ician [facility] Nursing staff Assisted with patient's exam. Visit being done today meets criteria for Telehealth visit and patient/guardian is aware that visit is Telehealth visit. Camera Start Time 307 Camera End Time 327 Telehealth: Statement Statement Telehealth Visit: Today's History and Physical is provided via interactive telehealth by Catherine Lopez MD.? Patient is located at [facility].? Provider is located at [facility].? Nursing staff assisted with the patient's exam. The visit being done today meets criteria for a telehealth visit and the patient or patient?s parent/guardian is aware the visit is a telehealth visit. Camera Start Time: 03:07 Camera End Time: 03:27
[2024-12-15] MEDS: cefTRIAXone 2 GM in 0.9 % SODIUM CHLORIDE Mini-bag 100 ML IVPB (05:20)
[2024-12-15 06:15] LABS: Hematocrit 34.8 % (33.0-51.0); Hemoglobin* 11.6 gm/dL (12.0-16.0); Immature Granulocytes Abs Auto 0.08 K/uL (0.00-0.30); Immature Granulocytes Pct Auto 1.2 %; Mean Corpuscular HGB Conc 33 gm/dL (32-36); Mean Corpuscular Hemoglobin 28 pg (26-34); Mean Corpuscular Volume 85 fL (80-100); RDW Coefficient of Variation % 13.4 % (11.5-15.5); Red Blood Count 4.11 m/uL (4.00-5.20); White Blood Count* 6.44 K/uL (4.50-11.00)
[2024-12-15] MEDS: POTASSIUM CHLORIDE 10 MEQ CAPSULE ER 40 MEQ PO (06:16)
[2024-12-15 06:38] LABS: Lymphocytes Absolute Auto 1.10 K/uL (0.90-2.90); Slide Review Reflex No
[2024-12-15 06:52] LABS: Chloride* 105 mmol/L (96-114); Sodium* 138 mmol/L (135-149)
[2024-12-15 06:55] LABS: Blood Urea Nitrogen* 15 mg/dL (7-30); Creatinine* 0.9 mg/dL (0.5-1.5); Est. Creatinine Clearance* 39.20; Estimated Glomerular Filt Rate 63 ml/min
[2024-12-15 06:56] LABS: Anion Gap 9 mEq/L (7-15); Calcium* 9.6 mg/dL (8.4-10.6); Carbon Dioxide* 24 mmol/L (20-32); Cholesterol* 136 mg/dL (90-199); Glucose* 176 mg/dL (60-115); HDL Cholesterol* 46 mg/dL (>=50); Triglycerides* 122 mg/dL (40-149)
[2024-12-15 07:03] LABS: Potassium* 2.9 mmol/L (3.6-5.1)
--- NOTE | 2024-12-15 07:06 | PC.NURSE ---
Pt arrived to the floor at 0130. Alert oriented and vitally stable, though hypertensive (permissive). Neuro q4h, unremarkable. Hematoma on right arm from IV infiltration in ED, arm elevated, and heat compress applied, swelling seemingly receding. Pt denies pain, headache, and dizziness. Pt SBA. Daughter at bedside. Pt in bed, appears to be resting, call light within reach.
[2024-12-15] MEDS: ONDANSETRON ODT 4 MG TAB PO (08:08)
[2024-12-15] MEDS: CLOPIDOGREL 75 MG TABLET PO (09:44)
[2024-12-15] MEDS: SODIUM CHLORIDE 0.9 % (FLUSH) 10 ML SYRINGE 5 ML IVF ×2 (09:44→20:50)
--- NOTE | 2024-12-15 10:40 | P.IMPN_ITS ---
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: Problem comment: -chronic occlusion/stenosis of R MCA -asp 325/Plavix 75 for 3 mo per stroke neuro -A1C <7 is goal, avoid hypoglycemia -BP 220/120 or less - start gentle control am of 12/16 -continue telemetry, will need outpatient stroke Neuro f/u Status: Acute (2) Acute hypokalemia: Problem comment: -2.9 -replace and follow Status: Acute (3) Type 2 diabetes mellitus with diabetic neuropathy, without long-term current use of insulin: Problem comment: -A1C goal is less than 7; currently 7.6 -will start daily jardiance for DM and the cardioprotective profile Status: Acute (4) HTN (hypertension): Problem comment: -restart home meds 12/16 (atenolol, losartan) - consider not restarting clonodine and chlorthalidone in lieu of other meds (diltizem? longer acting metoprolol? amlodipine?) -prn labetolol if hypertensive above 220/120 Status: Acute (5) Hyperlipidemia: Problem comment: -increased pravastatin to 40mg Status: Acute (6) Venous insufficiency: Problem comment: noted Status: Acute (7) UTI (urinary tract infection): Problem comment: GNR growing; on ceftriaxone. narrow to oral when data available. Status: Acute Subjective Date Seen: 12/15/24 Interval history: Daily Progress Note - Hospital #: 1 - admitted earlier this morning CC: Acute CVA 24 HOUR UPDATE: Admitted this morning after acute neuro changes last night. These included left facial droop, slurred speech, mild confusion with a staring off episode and mild left arm weakness. onset of sx about 830pm on 12/14. By arrival to the ED - symptoms resolved. No lytics. This morning she feels normal and doesn't understand the fuss. No questions for our team. I was in the room for the Tele-Stroke visit with Dr. Porter. He went over CT, CTA, MR findings and recommends an additional night of observation. Routine post stroke care: permissive HTN (220/120), monitor blood sugar, neuro checks, IVF if needed and head of bed >30 degrees. There some confusion regarding her HTN management. No meds were given despite an out of bounds DBP x 2. There is now a labetalol. Notable Labs, Micro, Rads, Interventions: Neck hypertensive 182/125 176/84 185/102 Pulse normal 70s and 80s Respiratory rate is normal without respiratory distress. Oxygen saturations on room air are normal. CBC is reassuring. Mild to moderate hypokalemia noted at 2.9. Hemoglobin A1c 7.6 Blood sugars have been 205, 176, 204 LDL is 66 Brain MRI 1. Acute ischemic infarcts in the right head of caudate nucleus and right middle frontal gyrus. 2. Acute on chronic ischemic infarcts in the right temporal lobe adjacent to a large region of encephalomalacia. Multiple foci of tract likely due to petechial hemorrhage. CTA Short-segment thromboembolic occlusion of the anterior right M2 with perhaps partially occlusive thrombus in the posterior right M2. Echo 1. Normal left ventricular size, normal wall thickness, normal global systolic function, calculated EF of 66 %. 2. Right ventricular cavity size is normal, global systolic RV function is normal. 3. Moderately enlarged left atrium. 4. No shunt seen across the interatrial septum. 5. Tricuspid valve is normal, moderate tricuspid regurgitation. 6. Mild MR. Stroke neuro ASSESSMENT: # acute small infarcts in R caudate nucleus and R frontal cortex (R MCA territory) Cause: R MCA M2 segmental occlusion/stenosis, likely chronic due to mild symptoms and old R MCA infarct. Risk factors: HTN, DM2, HLD, chronic R temporal lobe infarct on MRI, age. ? RECOMMENDATIONS: - continue ASA 325mg and plavix 75 mg daily - therapies - permissive hypertension BP < 220/120 for 24 hrs, then gradually lower to normotensive - STAT CT/CTA and consider transfer if symptoms recur. - continue statin; LDL at goal <70 - A1C <7 - telemetry. Outpt cardiac monitoring. - f/u with stroke clinic Objective: Alert, insightful. Looks younger than stated age Vitals: see above Lungs: Clear. Cardiac: S1S2. Neuro: No deficits Disposition/Potential discharge - Likely home in the morning Today I spent 50minutes seeing the patient, reviewing Expanse and EPIC notes/diagnostics, discussing the care plan with our care time that includes social work, PT/OT, pharmacy, RT, group home and documenting my impressions and plan in the medical record. Exam Const: Vital Signs, click to edit/add: Vital Signs - 24 hr 12/14/24 21:44 12/14/24 21:44 12/14/24 21:55 Temperature 97.6 F Pulse Rate 74 Pulse Rate [Left P ulse Oximeter] 80 Pulse Rate [Pulse Oximeter] Respiratory Rate 16 Blood Pressure 206/106 H Blood Pressure [Le ft Upper Arm] 206/106 H Blood Pressure [le ft forearm] Pulse Oximetry 98 98 95 Oxygen Delivery Me od Room Air Room Air 12/14/24 21:56 12/14/24 22:00 12/14/24 22:02 Temperature Pulse Rate 79 75 78 Pulse Rate [Left P ulse Oximeter] Pulse Rate [Pulse Oximeter] Respiratory Rate 22 19 17 Blood Pressure 197/117 H Blood Pressure [Le ft Upper Arm] Blood Pressure [le ft forearm] Pulse Oximetry 97 97 98 Oxygen Delivery Me od 12/14/24 22:14 12/14/24 22:15 12/14/24 22:17 Temperature Pulse Rate Pulse Rate [Left P ulse Oximeter] Pulse Rate [Pulse Oximeter] Respiratory Rate 20 14 Blood Pressure 189/167 H Blood Pressure [Le ft Upper Arm] Blood Pressure [le ft forearm] Pulse Oximetry 98 Oxygen Delivery Me od 12/14/24 22:30 12/14/24 22:32 12/14/24 22:45 Temperature Pulse Rate 69 72 81 Pulse Rate [Left P ulse Oximeter] Pulse Rate [Pulse Oximeter] Respiratory Rate 17 25 H 25 H Blood Pressure 179/84 H Blood Pressure [Le ft Upper Arm] Blood Pressure [le ft forearm] Pulse Oximetry 95 96 95 Oxygen Delivery Me od 12/14/24 22:47 12/14/24 23:00 12/14/24 23:02 Temperature Pulse Rate 68 69 Pulse Rate [Left P ulse Oximeter] Pulse Rate [Pulse Oximeter] Respiratory Rate 19 16 Blood Pressure 212/99 H 188/83 H Blood Pressure [Le ft Upper Arm] Blood Pressure [le ft forearm] Pulse Oximetry 96 98 Oxygen Delivery Me od 12/14/24 23:26 12/14/24 23:28 12/14/24 23:30 Temperature Pulse Rate 71 72 70 Pulse Rate [Left P ulse Oximeter] Pulse Rate [Pulse Oximeter] Respiratory Rate 23 19 Blood Pressure 168/116 H Blood Pressure [Le ft Upper Arm] Blood Pressure [le ft forearm] Pulse Oximetry 98 97 98 Oxygen Delivery Me od 12/14/24 23:33 12/14/24 23:45 12/14/24 23:57 Temperature Pulse Rate 69 66 Pulse Rate [Left P ulse Oximeter] Pulse Rate [Pulse Oximeter] Respiratory Rate 12 18 Blood Pressure 174/75 H 159/74 H Blood Pressure [Le ft Upper Arm] Blood Pressure [le ft forearm] Pulse Oximetry 98 98 Oxygen Delivery [facility] 12/15/24 00:00 12/15/24 00:02 12/15/24 00:15 Temperature Pulse Rate 61 Pulse Rate [Left P ulse Oximeter] Pulse Rate [Pulse Oximeter] Respiratory Rate 20 24 16 Blood Pressure 150/80 H Blood Pressure [Le ft Upper Arm] Blood Pressure [le ft forearm] Pulse Oximetry 96 Oxygen Delivery [facility] 12/15/24 00:16 12/15/24 00:30 12/15/24 00:31 Temperature Pulse Rate 63 60 61 Pulse Rate [Left P ulse Oximeter] Pulse Rate [Pulse Oximeter] Respiratory Rate 16 19 19 Blood Pressure 149/71 H 150/75 H Blood Pressure [Le ft Upper Arm] Blood Pressure [le ft forearm] Pulse Oximetry 98 99 98 Oxygen Delivery [facility] 12/15/24 00:45 12/15/24 00:46 12/15/24 01:00 Temperature Pulse Rate 63 67 63 Pulse Rate [Left P ulse Oximeter] Pulse Rate [Pulse Oximeter] Respiratory Rate 20 19 19 Blood Pressure 157/75 H Blood Pressure [Le ft Upper Arm] Blood Pressure [le ft forearm] Pulse Oximetry 97 97 99 Oxygen Delivery [facility] 12/15/24 01:01 12/15/24 01:15 12/15/24 01:16 Temperature Pulse Rate 63 60 60 Pulse Rate [Left P ulse Oximeter] Pulse Rate [Pulse Oximeter] Respiratory Rate 19 15 Blood Pressure 148/77 H 141/73 H Blood Pressure [Le ft Upper Arm] Blood Pressure [le ft forearm] Pulse Oximetry 98 99 99 Oxygen Delivery [facility] 12/15/24 01:30 12/15/24 01:30 12/15/24 03:05 Temperature 98.0 F Pulse Rate 65 Pulse Rate [Left P ulse Oximeter] Pulse Rate [Pulse Oximeter] 72 Respiratory Rate 16 16 Blood Pressure Blood Pressure [Le ft Upper Arm] Blood Pressure [le ft forearm] 127/97 H Pulse Oximetry 98 98 Oxygen Delivery Me thod Room Air Room Air 12/15/24 03:35 12/15/24 06:29 12/15/24 07:00 Temperature 98.2 F Pulse Rate 70 Pulse Rate [Left P ulse Oximeter] Pulse Rate [Pulse Oximeter] 69 Respiratory Rate 18 Blood Pressure Blood Pressure [Le ft Upper Arm] Blood Pressure [le ft forearm] 182/125 H 176/84 H Pulse Oximetry 94 Oxygen Delivery Me thod Room Air 12/15/24 07:00 12/15/24 07:30 12/15/24 07:44 Temperature 97.6 F Pulse Rate Pulse Rate [Left P ulse Oximeter] Pulse Rate [Pulse Oximeter] 77 77 77 Respiratory Rate 18 18 Blood Pressure Blood Pressure [Le ft Upper Arm] Blood Pressure [le ft forearm] 176/131 H Pulse Oximetry 97 Oxygen Delivery Me thod Room Air Labs Labs: Laboratory Results - last 24 hr 12/14/24 12/14/24 12/15/24 22:22 23:20 05:48 WBC 5.56 6.44 RBC 4.34 4.11 Hgb 12.3 11.6 L Hct 36.7 34.8 MCV 85 85 MCH 28 28 MCHC 34 33 RDW Coeff of [place] 13.5 13.4 Plt Count 193 170 Neut % (Auto) 67.7 72.1 H Lymph % (Auto) 18.2 L 16.5 L [place] % (Auto) 9.7 8.5 Eos % (Auto) 2.9 1.4 Baso % (Auto) 0.4 0.3 Neut # (Auto) 3.77 4.60 Lymph # (Auto) 1.00 1.10 [place] # (Auto) 0.50 0.50 Eos # (Auto) 0.16 0.09 Baso # (Auto) 0.02 0.02 Abs Immat Gran (auto) 0.06 0.08 Imm/Tot Granulo (auto) 1.1 1.2 INR 0.95 APTT 24 Sodium 137 138 Potassium 3.0 L 2.9 L* Chloride 104 105 Carbon Dioxide 22 24 Anion Gap 11 9 BUN 17 15 Creatinine 1.0 0.9 Estimated Creat Clear 39.20 39.20 Estimated GFR 56 63 Glucose 205 H 176 H Hemoglobin A1c 7.6 H Calcium 10.1 9.6 Troponin I < 0.01 Triglycerides 122 Cholesterol 136 LDL Cholesterol, Calc 66 HDL Cholesterol 46 L Urine Color Yellow Urine Appearance Slightly Cloudy A Urine pH 5.5 Ur Specific [place] 1.020 Urine Protein Negative Urine Glucose (UA) Negative Urine Ketones Negative Urine Blood Trace-intact A Urine Nitrite Negative Urine Bilirubin Negative Urine Urobilinogen 0.2 Ur Leukocyte Esterase 1+ A Urine RBC 0-2 Urine WBC 10-25 A Ur Squamous Epith Cells Few Urine Bacteria Few A
[2024-12-15] MEDS: POTASSIUM BICARB 25 MEQ EFFERVESCENT TAB PO ×4 (12:01→17:25)
[2024-12-15] MEDS: LEVOTHYROXINE 100 MCG TABLET PO (12:02)
[2024-12-15] MEDS: INSULIN ASPART 100 UNIT/ML SUBCUT (12:08)
[2024-12-15] MEDS: EMPAGLIFLOZIN 10 MG TABLET PO (16:27)
[2024-12-15] MEDS: ASPIRIN 81 MG TAB.CHEW 243 MG PO (16:27)
[2024-12-15] MEDS: LABETALOL HCL 5 MG/ML inj 10 MG IVP (16:27)
--- NOTE | 2024-12-15 19:29 | PC.NURSE ---
End of Shift: Patient pleasant and cooperative, A&O. VSS, afebrile. Patient was noted to be hypertensive, notified, gave PRN medication, see MAR.? SBA in room. Tolerating regular diet. ?
[2024-12-15] MEDS: PRAVASTATIN SODIUM 20 MG TABLET 40 MG PO (20:50)
[2024-12-16 02:45] VITALS: BP 154/79; PULSE 82; RESP 16; TEMP 36.8; O2SAT 97
[2024-12-16] MEDS: cefTRIAXone 2 GM in 0.9 % SODIUM CHLORIDE Mini-bag 100 ML IVPB (05:51)
[2024-12-16 06:56] LABS: Hematocrit 36.5 % (33.0-51.0); Hemoglobin* 12.0 gm/dL (12.0-16.0); Mean Corpuscular HGB Conc 33 gm/dL (32-36); Mean Corpuscular Hemoglobin 28 pg (26-34); Mean Corpuscular Volume 85 fL (80-100); Red Blood Count 4.28 m/uL (4.00-5.20); Slide Review Reflex No; White Blood Count* 5.36 K/uL (4.50-11.00)
[2024-12-16 07:00] VITALS: PULSE 74; PULSE 97
--- NOTE | 2024-12-16 07:08 | PC.NURSE ---
Pt pleasant, alert and oriented, though hypertensive (permissive). Neuro q4h, unremarkable. Hematoma on right arm from IV infiltration in ED, arm elevated, and heat compress applied, swelling seemingly receding. Area outlined, redness within parameters. Pt denies pain, headache, and dizziness. Pt in bed, appears to be resting, call light within reach.?
[2024-12-16 07:12] LABS: Albumin* 3.7 g/dL (3.3-5.0); Chloride* 104 mmol/L (96-114); Potassium* 3.8 mmol/L (3.6-5.1); Sodium* 136 mmol/L (135-149)
[2024-12-16 07:14] LABS: Blood Urea Nitrogen* 13 mg/dL (7-30); Creatinine* 0.9 mg/dL (0.5-1.5); Est. Creatinine Clearance* 39.20; Estimated Glomerular Filt Rate 63 ml/min
[2024-12-16 07:15] LABS: Alanine Aminotransferase* 14 U/L (4-35); Alkaline Phosphatase* 91 U/L (40-150); Anion Gap 7 mEq/L (7-15); Aspartate Amino Transferase* 24 U/L (12-35); Bilirubin Direct* 0.1 mg/dL (0.0-0.5); Bilirubin Total* 0.9 mg/dL (0.1-1.5); Calcium* 9.7 mg/dL (8.4-10.6); Carbon Dioxide* 25 mmol/L (20-32); Glucose* 122 mg/dL (60-115); Total Protein* 6.6 g/dL (6.0-8.3)
[2024-12-16] MEDS: LOSARTAN POTASSIUM 50 MG TABLET 100 MG PO (08:29)
[2024-12-16] MEDS: ASPIRIN EC 325 MG TABLET PO (08:29)
[2024-12-16] MEDS: POTASSIUM CHLORIDE 10 MEQ CAPSULE ER 20 MEQ PO (08:29)
[2024-12-16 08:30] VITALS: BP 191/92; PULSE 97; RESP 18; TEMP 36.7; O2SAT 97
[2024-12-16] MEDS: CLOPIDOGREL 75 MG TABLET PO (08:30)
[2024-12-16] MEDS: SODIUM CHLORIDE 0.9 % (FLUSH) 10 ML SYRINGE 5 ML IVF (08:30)
[2024-12-16] MEDS: EMPAGLIFLOZIN 10 MG TABLET PO (08:30)
[2024-12-16 11:00] VITALS: BP 180/90; PULSE 76; RESP 18; TEMP 36.9; O2SAT 97
--- NOTE | 2024-12-16 12:10 | PC.NURSE ---
Discharge: Patient pleasant and cooperative, A&O. VSS, afebrile. SpO2 maintained above 90% on RA. Denies pain. IV removed with tip intact. Discharge instructions provided, all questions answered. Discharged to home via wheelchair with family.
--- NOTE | 2024-12-16 15:55 | PM.DS1 ---
DS: Providers Provider Date Seen: 12/16/24 Date of admission: 12/15/24 13:30 Primary care physician: Meg Oconnell DO Admitting Clinician: Catherine Lopez MD Consults: 12/15/24 Consult to Physical Therapy [CONS] Routine Comment: Reason(s) for PT Consult:: Evaluate and Treat Any Restrictions?:: No Restrictions Attending Physician on discharge: Richard Del Angel MD DS: Diagnosis Discharge Diagnosis (1) Acute ischemic cerebrovascular accident (CVA) involving right middle cerebral artery territory: Status: Acute Problem details: -chronic occlusion/stenosis of R MCA -asp 325/Plavix 75 for 3 mo per stroke neuro -A1C <7 is goal, avoid hypoglycemia Initially permissive hypertension followed by optimal blood pressure control over the next few weeks. Outpatient Stroke Neurology follow-up. (2) Acute hypokalemia: Status: Acute Problem details: -2.9 -replace and follow. (3) UTI (urinary tract infection): Status: Acute Problem details: GNR growing; on ceftriaxone. Discharged on cephalexin pending urine culture results. (4) HTN (hypertension): Status: Acute Problem details: During hospital stay patient was allowed permissive hypertension. With her multidrug hypertension and hypokalemia consider outpatient testing with aldosterone and plasma renin activity for secondary causes of hypertension and hypokalemia DS: Summary Hospital Course Hospital Course: Makayla Casas is seen as an Interactive Telehealth visit. Makayla Casas is a 84 year old female with past medical history significant for hypertension, diet-controlled type 2 diabetes, venous insufficiency, obesity, restless leg syndrome who presented to emergency department for evaluation of strokelike symptoms. Patient reports she was talking to her daughter last night around 8:30 PM. Daughter noticed that her speech was slurred and she also noted some confusion. Daughter drove to her house with her own daughter and noticed left facial droop and also left upper extremity weakness. Symptoms resolved by the time EMS arrived. Patient herself is otherwise denying any complaints. She denies any fever or chills. She has no headache, dizziness, chest pain, abdominal pain, nausea or vomiting. Workup in the emergency department showed white count 5.5, hemoglobin 12.3, hematocrit 36.7, platelets 193. BMP was unremarkable except potassium was 3.0 and glucose 205. Initial troponin 0.01, UA showed 1+ leukocyte Estrace, WBC 10-25 with few bacteria's in the urine. CT head showed chronic appearing right temporal lobe infarct and chronic changes with no acute appearing intracranial abnormality appreciated. MRI recommended for further evaluation. Neurology was consulted. They recommended admission with MRI brain. They also recommended one-time dose of Plavix while patient was in the ED. And to continue with aspirin and Plavix. Since admission patient reports being back at baseline with no new or changing neurologic symptoms. She reports otherwise being well. Status at Discharge Overall status at discharge: patient is progressing back to baseline Time Spent with Patient Time attestation: Total time spent providing and/or coordinating discharge services: 40 minutes Time spent: Greater than 30 minutes Exam Narrative: Exam Narrative: She is alert appears in no distress. Speech is somewhat slow but otherwise fluent. She is oriented to her circumstances. There is no facial asymmetry. She moves both upper extremities well without focal weakness or clumsiness. Const: Vital Signs, click to edit/add: Vital Signs - 24 hr 12/15/24 17:00 12/15/24 19:36 12/15/24 19:36 Temperature 98.1 F Pulse Rate Pulse Rate [Pulse Oximeter] 77 76 Respiratory Rate 18 Blood Pressure [RI GHT FOREARM] 171/92 H Blood Pressure [le ft forearm] 137/81 Pulse Oximetry 97 Oxygen Delivery Me thod Room Air 12/15/24 23:00 12/15/24 23:00 12/15/24 23:00 Temperature Pulse Rate 67 Pulse Rate [Pulse Oximeter] 74 74 Respiratory Rate 16 Blood Pressure [RI GHT FOREARM] Blood Pressure [le ft forearm] Pulse Oximetry Oxygen Delivery Me thod 12/15/24 23:18 12/16/24 02:45 12/16/24 02:45 Temperature 98.3 F 98.3 F Pulse Rate Pulse Rate [Pulse Oximeter] 74 82 82 Respiratory Rate 16 16 Blood Pressure [RI GHT FOREARM] 146/50 H 154/79 H Blood Pressure [le ft forearm] Pulse Oximetry 99 97 [facility] Room Air 12/16/24 07:00 12/16/24 07:00 12/16/24 08:30 Temperature 98.1 F Pulse Rate 74 Pulse Rate [Pulse Oximeter] 97 97 Respiratory Rate 18 Blood Pressure [RI GHT FOREARM] 191/92 H Blood Pressure [le ft forearm] Pulse Oximetry 97 Oxygen [facility] Air 12/16/24 08:30 12/16/24 11:00 Temperature 98.4 F Pulse Rate Pulse Rate [Pulse Oximeter] 97 76 Respiratory Rate 18 18 Blood Pressure [RI GHT FOREARM] 180/90 H Blood Pressure [le ft forearm] Pulse Oximetry 97 Oxygen Delivery Me thod Room Air Documenting provider has reviewed patient's vital signs: yes DS: Data Data Completed and Pending Labs on day of discharge: Labs from last 24 hours 12/16/24 06:25 WBC 5.36 RBC 4.28 Hgb 12.0 Hct 36.5 MCV 85 MCH 28 MCHC 33 Plt Count 195 Sodium 136 Potassium 3.8 Chloride 104 Carbon Dioxide 25 Anion Gap 7 BUN 13 Creatinine 0.9 Estimated Creat Clear 39.20 Estimated GFR 63 Glucose 122 H Calcium 9.7 Phosphorus 3.2 Total Bilirubin 0.9 Direct Bilirubin 0.1 AST 24 ALT 14 Alkaline Phosphatase 91 Total Protein 6.6 Albumin 3.7 Preliminary micro results at discharge 12/14/24 23:20 Urine Culture - Preliminary Urine,Clean Catch Gram negative eli Imaging CTA neck: Radiologist's impression: INDICATION: Acute stroke, slurred speech, left facial droop. TECHNIQUE: CTA neck with contrast bolus tracking, 3D angiographic rendering using maximum intensity projection (MIP) and images permanently archived. FINDINGS: There is carotid atherosclerosis bilaterally. There is atherosclerotic plaque in the proximal right ICA resulting in a moderate stenosis, 60% by NASCET. There is atherosclerotic plaque in the proximal left ICA resulting in a mild stenosis, less than 50% by NASCET. There is no significant vertebral artery stenosis or dissection. The soft tissues of the neck are within normal limits. The cervical spine is in normal alignment. Degenerative changes are noted in the cervical spine. IMPRESSION: Moderate proximal right ICA stenosis, 60% by NASCET. Mild proximal left ICA stenosis, less than 50% by NASCET. MR Brain: Radiologist's impression: Indication: TIA/CVA. Technique: Noncontrast sagittal T1 weighted, axial FLAIR, axial T2 weighted, and axial diffusion weighted sequences are provided. Comparison: CT 12/14/2024 Findings: Small focus of diffusion restriction and T2 prolongation in the right middle frontal gyrus and head of the right caudate nucleus. Moderate region of diffusion restriction, encephalomalacia, and multiple susceptible artifacts in the right lateral temporal lobe. No mass effect or midline shift. No hydrocephalus. No suspicious extra-axial collection. Multiple scattered foci of T2 prolongation in the supratentorial white matter nonspecific but likely due to chronic small vessel ischemic changes. Expected intracranial vascular flow voids are preserved. The calvarium is intact. Scalp soft tissues are grossly normal. The orbits are unremarkable. Impression: 1. Acute ischemic infarcts in the right head of caudate nucleus and right middle frontal gyrus. 2. Acute on chronic ischemic infarcts in the right temporal lobe adjacent to a large region of encephalomalacia. Multiple foci of tract likely due to petechial hemorrhage. Discharge Plan Discharge Disposition: Home, Self-Care Date of Admission: 12/15/24 13:30 Attending Provider on Discharge: Buddy Del Angel Primary Care Provider: Meg Oconnell Condition: Stable Anticipated Discharge Date/Time: 12/16/24 10:46 Discharge Medications: New Jardiance 10 mg Tablet 10 mg PO DAILY Qty: 30 0RF clopidogrel 75 mg tablet 75 mg PO DAILY Qty: 90 0RF cephalexin 500 mg capsule 500 mg PO BID Qty: 10 0RF Continued aspirin 81 mg tablet,delayed release (DR/EC) 81 mg PO DAILY Rx Instructions: Once daily atenolol 50 mg tablet 50 mg PO DAILY Rx Instructions: Take 1 Tablet (50 mg) by mouth once daily. chlorthalidone 25 mg tablet 25 mg PO DAILY Rx Instructions: Take 1 Tablet (25 mg) by mouth once daily. clonidine HCl 0.2 mg tablet 0.2 mg PO BID Rx Instructions: Take 1 Tablet (0.2 mg) by mouth two times daily. cyanocobalamin (vitamin B-12) 500 mcg tablet 500 mcg PO DAILY Rx Instructions: Take 1 tablet by mouth once daily. losartan 100 mg tablet 100 mg PO DAILY Rx Instructions: Take 1 Tablet (100 mg) by mouth once daily. cholecalciferol (vitamin D3) 50 mcg (2,000 unit) capsule 2,000 unit PO DAILY Rx Instructions: Take 1 capsule by mouth once daily. pravastatin 10 mg tablet 10 mg PO DAILY Changed potassium chloride [Klor-Con M20] 20 mEq tablet,ER particles/crystals 40 meq PO DAILY Qty: 60 0RF Discharge Orders: Discharge Order (Routine); Ordered 12/16/24 Ordered By: Buddy Del Angel Patient Education: Cephalexin (By mouth) (Bio-Cef, Keflex), Clopidogrel (By mouth) (Plavix), Empagliflozin (By mouth) (Jardiance), Urinary Tract Infection in Women (DC), Stroke (DC) Activity Level: No Restrictions Discharge Diet: Heart Healthy (2 gm sodium, low fat) Follow Up Appointments: [facility] [Provider Group] Referral Note: [facility] neurology at next available appointment (on a Sunday if possible d/t family transport request) Meg Oconnell DO [Primary Care Provider, [facility]] - 12/24/24 11:00 am Referral Note: [facility] follow-up for recheck of stroke symptoms, optimize blood pressure control and check basic metabolic panel. Forms: [employer] Info Instructions
== END 2024-12-16 12:00 | disposition home or self-care (01) | DRG 65 ==
LOC: ED 12-15 01:03 → MEDSURG 12-15 01:23
PROVIDERS: Admitting Provider Internal Medicine; Emergency Provider Family Medicine; PCP Family Medicine; Visit Provider Family Medicine
DX: I63.511 Cerebral infarction due to unspecified occlusion or stenosis of right middle cerebral artery (principal); N39.0 Urinary tract infection, site not specified; R47.81 Slurred speech; R29.810 Facial weakness; G83.24 Monoplegia of upper limb affecting left nondominant side; B96.89 Other specified bacterial agents as the cause of diseases classified elsewhere; E87.6 Hypokalemia; E11.9 Type 2 diabetes mellitus without complications; E66.9 Obesity, unspecified; Z68.31 Body mass index [BMI] 31.0-31.9, adult; I87.2 Venous insufficiency (chronic) (peripheral); G25.81 Restless legs syndrome; I10 Essential (primary) hypertension; Z79.84 Long term (current) use of oral hypoglycemic drugs; Z79.82 Long term (current) use of aspirin
CPT/HCPCS: 36415; 70450; 70496; 70498; 70551; 80048; 80061; 80069; 80076; 81001; 82962; 83036; 84484; 85025; 85027; 85610; 85730; 87086; 93005; 93306; 94761; 97161; 97165; 97535; 99284; 99291; A9270; G0378; J0696; J7030; Q9967

== ENCOUNTER 2025-01-25 12:16 | Emergency (ER) | payer MEDICARE, BC, SELFPAY ==
[2025-01-25] VITALS (25 sets, daily range): BP systolic 117–137; BP diastolic 49–94; PULSE 59–87; RESP 12–22; TEMP 36.6; O2SAT 76–100; BMI 29.9
--- OUTSIDE RECORDS SUMMARY | 2025-01-25 12:19 | XMS_ITS | Clinical Summary ---
Author Organization [employer] [facility] Address [address] [place] [id number] Care Team Providers Care Marketing Development Specialist Name Role Phone Meg Oconnell DO Primary Care Provider [phone] Allergies Active Allergy Reactions Criticality Noted Date Comments Lisinopril Cough Low 06/24/2013 cough Medications ASPIRIN 81 MG TAB, DELAYED RELEASEIndications :Unspecified essential hypertension Once daily 0 08/12/19 08 Active naproxen (ALEVE) 220 mg tablet Take 1 tablet by mouth every 12 hours if needed. 0 09/22/19 12 Active lancets (ACCU-CHEK MULTICLIX LANCET)Indications :Type II or unspecified type diabetes mellitus without mention of complication, not stated as uncontrolled (HC) Test once daily 102 Each 3 06/24/19 14 Active cholecalciferol (VITAMIN D-3) 2,000 unit capsule Take 1 capsule by mouth once daily. 0 07/18/19 17 Active cyanocobalamin (VITAMIN B12) 500 mcg tabletIndications: B12 deficiency Take 1 tablet by mouth once daily. 90 tablet 1 11/05/19 20 Active blood-glucose meterIndications:T ype 2 diabetes mellitus with diabetic neuropathy, without long-term current use of insulin (HC) Dispense meter, test strips, lancets covered by pt ins. E11.9 NIDDM type II - Test 1 time/day 1 Device 09/09/19 21 Active durable medical equipment (DME)Indications:C hronic pain of right ankle,Posterior tibial tendon dysfunction (PTTD) of right lower extremity,Pes planus of both feet,Sinus tarsi syndrome of right foot Air lift, PTTD brace, medium, right, Ref: 02PMR 1 Each 10/27/19 21 Active blood sugar diagnostic (Contour Next Test Strips) stripIndications:T ype 2 diabetes mellitus with diabetic neuropathy, without long-term current use of insulin (HC) TEST 1 TIME A DAY 100 Each 3 03/07/20 21 Active atenoloL (TENORMIN) 50 mg tabletIndications: Essential hypertension Take 1 Tablet (50 mg) by mouth once daily. 90 Tablet 3 07/09/19 25 Active chlorthalidone (HYGROTON) 25 mg tabletIndications: Essential hypertension Take 1 Tablet (25 mg) by mouth once daily. 90 Tablet 3 07/09/19 25 Active cloNIDine HCL (CATAPRES) 0.2 mg tabletIndications: Essential hypertension Take 1 Tablet (0.2 mg) by mouth two times daily. 180 Tablet 3 07/09/19 25 Active losartan (COZAAR) 100 mg tabletIndications: Essential hypertension Take 1 Tablet (100 mg) by mouth once daily. 90 Tablet 3 07/09/19 25 Active pravastatin (PRAVACHOL) 10 mg tabletIndications: Hyperlipidemia, unspecified hyperlipidemia type Take 1 Tablet (10 mg) by mouth at bedtime. 90 Tablet 3 07/09/19 25 Active potassium chloride (Klor-Con M20) 20 mEq extended-release tablet (part/cryst)Indica tions:Essential hypertension TAKE 1 TABLET BY MOUTH ONCE DAILY WITH A MEAL. 90 Tablet 2 12/17/19 25 Active apixaban (ELIQUIS) 5 mg tabletIndications: New onset atrial fibrillation (HC) Take 1 Tablet (5 mg) by mouth two times daily. 180 Tablet 3 01/08/20 25 Active metFORMIN (GLUCOPHAGE) 500 mg tabletIndications: Type 2 diabetes mellitus with diabetic neuropathy, without long-term current use of insulin (HC) Take 1 tablet (500 mg) once daily for 7 days, then 1 tablet twice daily for 7 days, then 2 tabs in AM and 1 tab in PM for 7 days, then 2 tablets in AM and 2 tablets in PM going forward 180 Tablet 01/08/20 25 Active empagliflozin (JARDIANCE) 10 mg tablet Take 10 mg by mouth once daily. 12/17/19 25 025 Discontinu ed(*Med complete/R egimen complete/L evel of care change) clopidogreL (PLAVIX) 75 mg tablet Take 75 mg by mouth once daily in the morning. 12/17/19 25 025 Discontinu ed(*Med complete/R egimen complete/L evel of care change) aspirin 325 mg tablet Take 1 Tablet (325 mg) by mouth once daily with a meal. 12/25/19 25 025 Discontinu ed(*Med complete/R egimen complete/L evel of care change) cephalexin 500 mg capsuleIndications :E-coli UTI Take 1 Capsule (500 mg) by mouth three times daily for 7 days. 21 Capsule 01/10/20 25 025 Active Problems Problem Noted Date Diagnosed Date [...] Encounters Date Type Department Care Team Description 01/16/2025 Telephone [facility] [address] [place] [address] Meg Oconnell DO Abstract (RETURN CALL REQUESTED) 01/12/2025 Telephone [facility] [address] [place] [phone] Tayla Matthews NP Questions 01/10/2025 Office Visit [facility] [address] [place] [phone] Katerina Garcia DO Telehealth 01/07/2025 12:55 PM CDT Office Visit [facility] [address] [place] [address] Meg Oconnell DO Atrial Fibrillation (New onset/dx, discuss anticoagulation therapy) 01/07/2025 Travel 01/05/2025 Telephone [facility] [address] [place] [phone] Tayla Matthews NP Results (Zio AT: A-fib ) 12/31/2024 10:02 AM CDT - 12/31/2024 11:59 PM CDT Hospital Encounter [facility] [address] [place] [address] Tayla Matthews NP Cerebrovascular accident (CVA) due to other mechanism (HC) 12/31/2024 Travel 12/26/2024 Telephone [facility] [address] [place] [phone] Tayla Matthews NP Follow Up 12/24/2024 11:00 AM CDT Office Visit [facility] [address] [place] [address] Meg Oconnell DO Hospital F/U (12/16 - CVA ) 12/24/2024 Travel 12/19/2024 Travel 12/17/2024 Telephone [facility] [address] [place] [phone] Rocio Adhikari NP Hospital F/U 12/16/2024 Telephone [facility] [address] [place] [phone] Rocio Adhikari, ASIYA Referral 12/15/2024 11:00 AM CDT Ancillary Procedure [facility] [address] [place] [address] 12/15/2024 Office Visit [facility] [address] [place] [phone] Katerina Garcia DO Telehealth 12/15/2024 Orders Only [facility] Scanner 1 scan: (1-Ord) ARVON[place], MR HEAD/BRAIN WO CON, 12/15/2024 12/15/2024 Office Visit [facility] [address] [place] [address] Letitia Porter MD 12/14/2024 Orders Only [facility] Scanner 1 scan: (1-Ord) ARVON[place], CT ANGIO HEAD, 12/14/2024 12/14/2024 Orders Only [facility] Scanner 1 scan: (1-Ord) [place]ON[place], CT ANGIO NECK, 12/14/2024 12/14/2024 Orders Only [facility] Scanner 1 scan: (1-Ord) ARVONIA, HEAD/BRAIN W/O, 12/14/2024 12/13/2024 Refill [facility] [address] [place] [address] Meg Oconnell DO Refill Request (Klor-con M20) from Last 3 Months Immunizations Immunization Administration [...] on file Legal Sex Female 5:48 AM ROOFING TILE SORTER Gender Identity Not on file Sexual Orientation Not on file 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 file Not on file [...] Sign Reading Time Taken Comments Blood Pressure 132/77 01/07/2025 1:07 PM CDT Pulse 77 01/07/2025 1:07 PM CDT Temperature 36.7 C (98.1 F) 09/18/2018 10:06 AM CDT Respiratory Rate 18 07/12/2015 10:12 AM ROOFING TILE SORTER Oxygen Saturation 98% 01/07/2025 1:07 PM CDT Inhaled Oxygen Concentration - - Weight 82.6 kg (182 lb 1.6 oz) 01/07/2025 1:07 P M CDT Height 168.4 cm (5' 6.3) 07/09/2024 1:08 PM ROOFING TILE SORTER Body Mass Index 29.13 07/09/2024 1:08 PM ROOFING TILE SORTER Plan of Treatment Upcoming Encounters Date Type Department Care Team (Late st Contact Info) Description 02/03/2025 1:00 PM CDT Office Visit [facility] [address] [place] [phone] Tayla Matthews NP [address] [place] [address] 03/18/2025 10:35 AM CDT Office Visit [facility] [address] [place] [address] Meg Oconnell DO [address] [place] [address] 04/03/2025 3:00 PM ROOFING TILE SORTER Office Visit [facility] [address] [place] [phone] Luis Paulson MD [address] [facility] [address] [place], [place] [id number] Health Maintenance Due Date Last Done Comments Zoster (shingles) series for age 50+ (2 of 3) 12/09/2014 10/14/2014 RSV vaccine for adults or (1 - 1-dose 75+ series) 02/24/2015 Tetanus booster 05/03/2021 05/03/2011, 09/2002, 09/19/1996 COVID-19 vaccine series ( season) [...] Procedure Name Priority Date/Time Associated Diagnosis Comments URINALYSIS MICROSCOPIC Routine 2:00 PM CDT UTI symptoms URINE CULTURE Routine 01/07/2025 2:00 PM CDT UTI symptoms URINALYSIS MACROSCOPIC - [facility] ONLY POC DIP ([facility]) Routine 01/07/2025 2:00 PM CDT UTI symptoms BASIC METABOLIC PANEL Routine 12/24/2024 12:24 PM CDT 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) ECHO TTE COMPLETE WO CONTRAST Routine 12/15/2024 11:33 AM CDT TIA (transient ischemic attack) Occlusion of right middle cerebral artery SCAN-MRI INTERPRETATION 12/15/2024 12:00 AM CDT SCAN-CT INTERPRETATION 5 12:00 AM CDT SCAN-CT INTERPRETATION 5 12:00 AM CDT SCAN-CT INTERPRETATION 5 12:00 AM CDT XR DXA BONE DENSITY 2 SITES AXIAL AND 1 SITE PERIPHERAL Routine 06/14/2022 12:20 PM ROOFING TILE SORTER Osteoporosis, unspecified osteoporosis type, unspecified pathological fracture presence from Last 3 Months or Most Recently Relevant to Health Maintenance Results * (ABNORMAL) POCT Urinalysis Dipstick Only [[id number]] (01/07/2025 2:00 PM CDT) SPECIFIC GRAVITY 1.015 1.001 - 1.035 01/07/2025 2:29 PM CDT [facility] PROTEIN NEGATIVE NEGATIVE 01/07/2025 2:29 PM CDT [facility] GLUCOSE 2+(A) NEGATIVE 01/07/2025 2:29 PM CDT [facility] KETONES NEGATIVE NEGATIVE 01/07/2025 2:29 PM CDT [facility] BILIRUBIN NEGATIVE NEGATIVE 01/07/2025 2:29 PM CDT [facility] OCCULT BLOOD TRACE(A) NEGATIVE 01/07/2025 2:29 PM CDT [facility] NITRITE NEGATIVE NEGATIVE 01/07/2025 2:29 PM CDT [facility] PH 6.5 5.0 - 8.0 01/07/2025 2:29 PM CDT [facility] LEUKOCYTE ESTERASE TRACE(A) NEGATIVE 01/07/2025 2:29 PM CDT [facility] Urine URINE SPECIMEN / Unknown Non-Blood / Unknown 01/07/2025 2:00 PM CDT 01/07/2025 2:21 PM CDT Meg Oconnell DO URINE Final Result [facility] [address] [place] [address], [facility] [address] [place] [address], * (ABNORMAL) URINALYSIS MICROSCOPIC [18495.1] - routine (01/07/2025 2:00 PM CDT) RBC 0-2 0-2, None Seen /HPF 01/07/2025 11:14 PM CDT [facility] WBC 51-100(A) 0-2, 3-5, None Seen /HPF 01/07/2025 11:14 PM CDT [facility] BACTERIA Many(A) None Seen, Rare, Few Bacteria/ HPF 01/07/2025 11:14 PM CDT [facility] EPITHELIAL CELLS None Seen None Seen, Few Epi/HPF 01/07/2025 11:14 PM CDT [facility] HYALINE CASTS 0-2 0-2, 3-5 /LPF 01/07/2025 11:14 PM CDT [facility] Urine URINE SPECIMEN / Unknown Non-Blood / Unknown 01/07/2025 2:00 PM CDT 01/07/2025 2:21 PM CDT Meg Oconnell DO URINE Final Result [facility] [address] [place] [address], [place] * (ABNORMAL) URINE CULTURE [59993.2] (01/07/2025 2:00 PM CDT) CULTURE RESULT(A) 01/10/2025 7:22 AM CDT [facility] CULTURE >100,000 CFU/mL Escherichia coli 01/10/2025 7:22 AM CDT [facility] Urine URINE SPECIMEN / Unknown Non-Blood / Unknown 01/07/2025 2:00 PM CDT 01/07/2025 2:21 PM CDT Narrative Organism Antibiotic Method Susceptibility Escherichia coli TRIMETHOPRIM/SULF <=1/19: S Escherichia coli AMPICILLIN <=2: S Escherichia coli CEFAZOLIN <=1: S Escherichia coli CEFAZOLIN-UC <=1: S Comment:Cefazolin-UC interpretations are for therapy of uncomplicated UTIs due to E.coli, K.pneumoniae, or P.mirablis. Cefazolin breakpoint is used as a surrogate to predict results for the oral agents - cefdinir, cefuroxime, and cephalexin, when used for therapy of uncomplicated UTIs due to E coli, K, pneumoniae, and P. mirabilis. The FDA recommends cefadroxil susceptibility can be deduced from cefazolin. Escherichia coli GENTAMICIN <=1: S Escherichia coli CEFTRIAXONE <=0.25: S Escherichia coli CEFTAZIDIME <=0.5: S Escherichia coli LEVOFLOXACIN >=8: R Escherichia coli CIPROFLOXACIN >=4: R Escherichia coli PIPERACILLIN/TAZO <=4: S Escherichia coli AMPICILLIN/SULBACTAM <=2: S Escherichia coli CEFEPIME <=0.12: S Escherichia coli MEROPENEM <=0.25: S Escherichia coli NITROFURANTOIN <=16: S Meg Oconnell DO MICROBIOLOGY Final Result [facility] [address] [place] [address], [place] * (ABNORMAL) BASIC METABOLIC PANEL (12/24/2024 12:24 PM CDT) Pathologist [facility] GLUCOSE 115(H) 65 - 99 mg/dL [facility] Comment: Fasting reference interval For someone without known diabetes, a glucose value between 100 and 125 mg/dL is consistent with prediabetes and should be confirmed with a follow-up test. UREA NITROGEN (BUN) 23 7 - 25 mg/dL [facility] CREATININE 0.93 0.60 - 0.95 mg/dL [facility] EGFR 61 > OR = 60 mL/min/1. 73m2 [facility] BUN/CREATININE RATIO SEE NOTE: 6 - 22 (calc) [facility] Comment: Not Reported: BUN and Creatinine are within reference range. SODIUM 136 135 - 146 mmol/L [facility] POTASSIUM 4.0 3.5 - 5.3 mmol/L [facility] CHLORIDE 102 98 - 110 mmol/L [facility] CARBON DIOXIDE 26 20 - 32 mmol/L [facility] ELECTROLYTE BALANCE 8 7 - 17 mmol/L (calc) [facility] CALCIUM 9.9 8.6 - 10.4 mg/dL [facility] Blood BLOOD SPECIMEN / Unknown 12/24/2024 12:24 PM CDT 12/24/2024 12:25 PM CDT us Meg Oconnell DO CHEMISTRY Final Result [facility] [address] [place] [address], [place] [phone] [facility] [address] [place] [address] * ECHO TTE COMPLETE WO CONTRAST (12/15/2024 11:33 AM CDT) AORTIC VALVE MEAN PG 8 mmHg EJECTION FRACTION 66 % PEAK TR VELOCITY 3.6 m/s LVEDD 4.7 cm Anatomical Region Laterality Modality Ultrasound 12/15/2024 11:0 2 AM CDT Narrative 12/15/2024 12:23 PM CDT ECHOCARDIOGRAM MAKAYLA CLARK : 1940 84 years Study Date: 12/15/2024 11:02:48 AM Gender: F BP: 171/131 mmHg Height: 168.00 cm BSA: 1.97 m Weight: 87.00 kg Tech: [facility] MD: SUELLEN BACH Site: [facility] Reading Location: MOBILE IP Patient Location: Inpatient. Procedure: 2D, Color Doppler and Spectral Doppler. Indication for study: TIA Cardiac Rhythm: Regular.Study quality: Excellent. Imaging limitations: This study was subject to imaging limitations due to body habitus. Final Impressions: 1. Normal left ventricular size, normal wall thickness, normal global systolic function, calculated EF of 66 %. 2. Right ventricular cavity size is normal, global systolic RV function is normal. 3. Moderately enlarged left atrium. 4. No shunt seen across the interatrial septum. 5. Tricuspid valve is normal, moderate tricuspid regurgitation. 6. Mild MR. Chamber Sizes and Function Normal left ventricular size, normal wall thickness, normal global systolic function, calculated EF of 66 %. No resting regional wall motion abnormality visualized. Left atrial size is moderately enlarged. Left atrial pressure is normal. Right ventricular cavity size is normal, global systolic RV function is normal. RV wall thickness is normal. The right atrium is normal. Right atrial volume index is 27 ml/m . Right atrial area is 18 cm . The pulmonary artery is of normal size and origin. The sinus of Valsalva is normal for age/sex/bsa. The ascending aorta is normal for age/sex/bsa. Valves, RV Pressures and Diastolic Function The aortic valve is normal in structure, trileaflet and sclerotic, no stenosis and trivial regurgitation. The mitral valve is normal in structure, mild mitral regurgitation. Indeterminate pattern of LV diastolic filling. The tricuspid valve is normal in structure, moderate tricuspid regurgitation. The tricuspid regurgitant velocity is 3.6 m/s, the estimated right ventricular systolic pressure is 51 mmHg plus right atrial pressure. The pulmonic valve is normal. Trace pulmonary regurgitation. Masses, Effusion, Shunts There is no pericardial effusion. The inferior vena cava is normal sized, respiratory size variation greater than 50%. No left to right shunting was detected by limited color flow Doppler interrogation of the interatrial septum. MEASUREMENTS AND CALCULATIONS 2-D Measurements and LV Function: LVID (d) 4.7 cm Planimetered EF 66 % LVID (s) 2.5 cm LV FS% (2D) 46 % IVS (d) 1.0 cm LVOT diameter 2.0 cm LVPW (d) 1.4 cm HR 96 bpm Ao Sinus 3.2 cm LA Vol index 45 ml/m2 Ao Sinus ULN 3.8 cm * RA Vol index 27 ml/m2 Asc Ao 4.0 cm RA area 18 cm Asc Ao ULN 4.1 cm * RV Basal Diam 4.4 cm * Input BSA and age are outside of ranges, reported RV Mid Diam 2.7 cm values correspond to BSA = 1.9 and Age = 80 Diastology: Mitral Tissue Doppler E Peak 1.2 m/s e', Septum 0.07 m/s A Peak 1.0 m/s e', Lateral 0.07 m/s E/A 1.2 E/e' Average 17.29 DT 219 msec Aortic Valve: Vmax 1.9 m/s KARSON (V) 2.07 cm AI P 1/2 786 msec VTI 0.44 m KARSON (I) 2.02 cm LVOT V max 1.2 m/s Max PG 14 mmHg LVOT VTI 0.29 m Mean PG 8 mmHg SV 89 ml Dim Index 0.65 SV index 45 ml/m CO 8.5 l/min CI 4.3 l/min/m Mitral Valve: MVA 3.5 cm MV P 1/2 64 msec MV Mean G 3 mmHg MV VTI 0.36 m Tricuspid Valve and estimated PA pressures: TR Vmax 3.6 m/s TAPSE 2.8 cm TR maxG 51 mmHg Pulmonic Valve: PV Vmax 1.3 m/s PV AT 94 msec . This study was interpreted by an [facility] accredited facility. CC: Med/Surg - IP [facility]. Final Procedure Note Bradly Landeros MD - 12/15/2024 ECHOCARDIOGRAM MAKAYLA CLARK : 1940 84 years Study Date: 12/15/2024 11:02:48 AM Gender: F BP: 171/131 mmHg Height: 168.00 cm BSA: 1.97 m Weight: 87.00 kg Tech: [facility] Referring MD: SUELLEN BACH Site: [facility] Reading Location: MOBILE IP Patient Location: Inpatient. Procedure: 2D, Color Doppler and Spectral Doppler. Indication for study: TIA Cardiac Rhythm: Regular.Study quality: Excellent. Imaging limitations: This study was subject to imaging limitations due tobody habitus. Final Impressions: 1. Normal left ventricular size, normal wall thickness, normal globalsystolic function, calculated EF of 66 %. 2. Right ventricular cavity size is normal, global systolic RV functionis normal. 3. Moderately enlarged left atrium. 4. No shunt seen across the interatrial septum. 5. Tricuspid valve is normal, moderate tricuspid regurgitation. 6. Mild MR. Chamber Sizes and Function Normal left ventricular size, normal wall thickness, normal globalsystolic function, calculated EF of 66 %. No resting regional wall motionabnormality visualized. Left atrial size is moderately enlarged. Leftatrial pressure is normal. Right ventricular cavity size is normal, globalsystolic RV function is normal. RV wall thickness is normal. The rightatrium is normal. Right atrial volume index is 27 ml/m . Right atrialarea is 18 cm . The pulmonary artery is of normal size and origin. Thesinus of Valsalva is normal for age/sex/bsa. The ascending aorta is normalfor age/sex/bsa. Valves, RV Pressures and Diastolic Function The aortic valve is normal in structure, trileaflet and sclerotic, nostenosis and trivial regurgitation. The mitral valve is normal instructure, mild mitral regurgitation. Indeterminate pattern of LVdiastolic filling. The tricuspid valve is normal in structure, moderatetricuspid regurgitation. The tricuspid regurgitant velocity is 3.6 m/s,the estimated right ventricular systolic pressure is 51 mmHg plus rightatrial pressure. The pulmonic valve is normal. Trace pulmonaryregurgitation. Masses, Effusion, Shunts There is no pericardial effusion. The inferior vena cava is normal sized,respiratory size variation greater than 50%. No left to right shunting wasdetected by limited color flow Doppler interrogation of the interatrialseptum. MEASUREMENTS AND CALCULATIONS 2-D Measurements and LV Function: LVID (d) 4.7 cm Planimetered EF 66% LVID (s) 2.5 cm LV FS% (2D) 46% IVS (d) 1.0 cm LVOT diameter2.0 cm LVPW (d) 1.4 cm HR 96bpm Ao Sinus 3.2 cm LA Vol index 45ml/m2 Ao Sinus ULN 3.8 cm * RA Vol index 27ml/m2 Asc Ao 4.0 cm RA area 18cm Asc Ao ULN 4.1 cm * RV Basal Diam4.4 cm * Input BSA and age are outside of ranges, reported RV Mid Diam2.7 cm values correspond to BSA = 1.9 and Age = 80 Diastology: Mitral Tissue Doppler E Peak 1.2 m/s e', Septum 0.07 m/s A Peak 1.0 m/s e', Lateral 0.07 m/s E/A 1.2 E/e' Average 17.29 DT 219 msec Aortic Valve: Vmax 1.9 m/s KARSON (V) 2.07 cm AI P 1/2 786 msec VTI 0.44 m KARSON (I) 2.02 cm LVOT V max 1.2 m/s Max PG 14 mmHg LVOT VTI 0.29 m Mean PG 8 mmHg SV 89 ml Dim Index 0.65 SV index 45 ml/m CO 8.5 l/min CI 4.3 l/min/m Mitral Valve: MVA 3.5 cm MV P 1/2 64 msec MV Mean G 3 mmHg MV VTI 0.36 m Tricuspid Valve and estimated PA pressures: TR Vmax 3.6 m/s TAPSE 2.8 cm TR maxG 51 mmHg Pulmonic Valve: PV Vmax 1.3 m/s PV AT 94 msec . This study was interpreted by an [facility] accredited facility. CC: Med/Surg - IP [facility]. Final us Suellen Bach MD ECHO ORD Final Result * SCAN-MRI INTERPRETATION (12/15/2024 12:00 AM CDT) Anatomical Region Laterality Modality Other us Scanner OTHER Final Result * SCAN-CT INTERPRETATION (12/14/2024 12:00 AM CDT) Only the most recent of3 resultswithin the time period is included. Anatomical Region Laterality Modality Other us Scanner OTHER Final Result * (ABNORMAL) XR DXA BONE DENSITY 2 SITES AXIAL AND 1 SITE PERIPHERAL (06/14/2022 12:20 PM ROOFING TILE SORTER) Anatomical Region Laterality Modality LUMBAR SPINE Other Impressions 06/20/2022 7:52 AM ROOFING TILE SORTER Osteopenia. RECOMMENDATIONS: The National Osteoporosis Foundation recommends [...] recommended in 3-5 years. Dariana Suárez PA-C [facility] 06/20/2022 Narrative 06/20/2022 7:52 AM ROOFING TILE SORTER For Patients: Results are automatically released to your [employer]) account once available, in compliance with federal regulations. This means that you may see your results before your provider has had a chance to review them. Please allow 2-3 business days for your provider to comment on the results. XR DXA Bone Mineral Density (BMD) EXAM LOCATION: [address] [address] PATIENT NAME: Makayla Clark DATE OF : 1940 EXAM DATE: 06/14/2022 REQUESTING PROVIDER: Meg Oconnell DO GENDER AT : female HEIGHT: 5' 6.26 (06/14/2022) WEIGHT: 202 lb (06/14/2022) MENOPAUSAL STATUS: Postmenopausal RACE/ETHNICITY: White RISK FACTORS: Height Loss (2 inches or more) and White Race CURRENT MEDICATION FOR BONE LOSS: NONE INDICATION: Follow-up of existing osteoporosis and Post-Menopause COMPARISON DATE(S): 2016 DXA scans are compared to prior studies for a patient only when the two (or more) studies were performed on the same scanner. It is not possible to compare data generated on one scanner to data from another because there are not standards in DXA equipment. This applies even if the two scanners are made by the same applied researcher. PROCEDURE: Dual-energy x-ray absorptiometry performed with routine [...] Relevant to Health Maintenance Insurance BLUE CROSS LUMMI BLUE MR PB ONLY [place] [id number] MEDICARE PART B HB ONLY Care Teams Marketing Development Specialist Relationship Specialty Start Date End Date Meg Oconnell [place] [address] PCP - General Family Practice 12/01/22
--- OUTSIDE RECORDS SUMMARY | 2025-01-25 12:19 | XMS_ITS | Patient Health Record ---
Author Organization [facility]on[facility] Address [address] [place] [address] Care Team Providers Care Electron Beam Photo Mask Technician Name Role Phone LEIDA STREETER Primary Care Provider Reason For Referral No Information Problems Problem Type SNOMED Code ICD Code Onset Dates Problem Status W/U Status Risk Notes Problem Primary hyperparathyroidism (97531174) Primary hyperparathyroidism (E21.0) 2014 Active confirmed [id number] 3310- Plan Of Treatment No Information Insurance Providers Payer Name Payer Address Payer Phone Subscriber Number Group Number Insured Name Patient Relationship to Insured Coverage Start Date Coverage End Date ID BLUE PPO/PPC/FE P [address] [place] [address] [id number] Makayla Casas Self - patient is the insured MEDICARE [address] [place] [address] [id number] Makayla Casas Self - patient is the insured ID BLUE PPO/PPC/FE P [address] [place] [address] [id number] Makayla Casas Self - patient is the insured
--- NOTE | 2025-01-25 12:38 | CRLHL7_ITS ---
For Patients: As a result of the Century Cures Act, medical imaging exams and procedure reports are released immediately into your electronic medical record. You may view this report before your referring provider. If you have questions, please contact your health care provider. INDICATION: 84-year-old female with weakness, history of stroke. TECHNIQUE: CT head without contrast. COMPARISON: CT head December 14, 2024 and MRI head December 15, 2024 FINDINGS: CSF spaces: Mild diffuse volume loss commensurate with age. No fluid collections. Ventricles: Commensurate with sulci. No Hydrocephalus. Brain parenchyma: Encephalomalacia right temporal lobe and right caudate nucleus with expected temporal evolution. No mass lesion, hemorrhage, or acute infarction. The ramirez-white differentiation is normal otherwise. Midline Structures: Normal. No shift. Orbits: Normal. Vessels: Atherosclerotic calcifications. Paranasal sinuses: Normal. Mastoid sinuses: Normal. Skull base and calvarium: No fractures or significant abnormalities. IMPRESSION: 1. No new or acute intracranial abnormalities. 2. Expected temporal evolution of the right temporal and right caudate nucleus encephalomalacia. 3. Stable additional findings as above. Please note that all CT scans at this facility use dose modulation, iterative reconstruction, and/or weight-based dosing when appropriate to reduce radiation dose to as low as reasonably achievable. Dictated by Marcus Jimenez MD @ 01/25/2025 1:23:14 PM (Electronically Signed)
--- NOTE | 2025-01-25 12:39 | CRLHL7_ITS ---
For Patients: As a result of the Cures Act, medical imaging exams and procedure reports are released immediately into your electronic medical record. You may view this report before your referring provider. If you have questions, please contact your health care provider. INDICATION: Pain COMPARISON: None. TECHNIQUE: Three views right knee. FINDINGS: Right knee total arthroplasty. Components are in good position. No loosening, failure, or subsidence. No fractures. No focal bone lesions. No knee joint effusion. Large soft tissue swelling in the anterior knee. IMPRESSION: Large anterior right knee soft tissue swelling. No arthroplasty complication or acute bone findings seen. Dictated by Laila Echeverria MD @ 01/25/2025 1:58:01 PM (Electronically Signed)
--- NOTE | 2025-01-25 12:42 | ED.GENADULT ---
HPI - General Adult General Chief complaint: Weakness Stated complaint: Light headed weak, stating a possible stroke Time Seen by Provider: 01/25/25 12:26 History of Present Illness HPI narrative: Patient is 84 white female lives independently in [place] she has had a history of stroke in November of this year. She was started on Plavix and aspirin, she has since switched to Eliquis. She fell on her knees last night and injured her right knee, has some bruising and ecchymotic area on the anterior knee. She has had a knee replacement. She reported a little bit of weakness this morning. Daughter came and brought her to the emergency department. She denies chest pain denies feeling poorly at this time. Denies fevers, chills, cough. No focal neurologic complaints. She is awake and alert mentating well. Noncyanotic. She has had a history of hypokalemia and as mention in November she had acute strokes noted on MRI. Related Data Home Medications ?Medication ?Instructions ?Recorded ?Confirmed aspirin 81 mg tablet,delayed 81 mg PO DAILY 12/15/24 12/15/24 release atenolol 50 mg tablet 50 mg PO DAILY 12/15/24 12/15/24 chlorthalidone 25 mg tablet 25 mg PO DAILY 12/15/24 12/15/24 cholecalciferol (vitamin D3) 50 2,000 unit PO DAILY 12/15/24 12/15/24 mcg (2,000 unit) capsule clonidine HCl 0.2 mg tablet 0.2 mg PO BID 12/15/24 12/15/24 cyanocobalamin (vitamin B-12) 500 500 mcg PO DAILY 12/15/24 12/15/24 mcg tablet losartan 100 mg tablet 100 mg PO DAILY 12/15/24 12/15/24 pravastatin 10 mg tablet 10 mg PO DAILY 12/15/24 12/15/24 apixaban 5 mg tablet (Eliquis) 5 mg PO BID 01/25/25 01/25/25 Previous Rx's ?Medication ?Instructions ?Recorded cephalexin 500 mg capsule 500 mg PO BID #10 caps 12/16/24 empagliflozin 10 mg tablet 10 mg PO DAILY #30 tabs 12/16/24 (Jardiance) potassium chloride 20 mEq 40 meq (2 x 20 mEq) PO DAILY #60 12/16/24 tablet,extended tabs release(part/cryst) (Klor-Con M) Allergies Allergy/AdvReac Type Severity Reaction Status Date / Time lisinopril Allergy Mild Cough Verified 12/14/24 23:22 Review of Systems Status of ROS: Reports: 6 or more systems reviewed and unremarkable except as noted in History and below [facility] Medical History Hyperlipidemia ?E78.5 - Hyperlipidemia, unspecified (ICD-10) Acute ischemic cerebrovascular accident (CVA) involving right middle cerebral artery territory ?I63.511 - Cerebral infarction due to unspecified occlusion or stenosis of right middle cerebral artery (ICD-10) Hematuria ?R31.9 - Hematuria, unspecified (ICD-10) Unspecified hereditary and idiopathic peripheral neuropathy ?G60.9 - Hereditary and idiopathic neuropathy, unspecified (ICD-10) RLS (restless legs syndrome) ?G25.81 - Restless legs syndrome (ICD-10) Obesity ?E66.9 - Obesity, unspecified (ICD-10) Osteoporosis ?M81.0 - Age-related osteoporosis without current pathological fracture (ICD-10) Type 2 diabetes mellitus with diabetic neuropathy, without long-term current use of insulin ?E11.40 - Type 2 diabetes mellitus with diabetic neuropathy, unspecified (ICD-10) Venous insufficiency ?I87.2 - Venous insufficiency (chronic) (peripheral) (ICD-10) HTN (hypertension) ?I10 - Essential (primary) hypertension (ICD-10) Surgical History History of knee replacement ?Z96.659 - Presence of unspecified artificial knee joint (ICD-10) Status post right knee replacement ?Z96.651 - Presence of right artificial knee joint (ICD-10) H/O section ?Z98.891 - History of uterine scar from previous surgery (ICD-10) Hx laparoscopic cholecystectomy ?Z90.49 - Acquired absence of other specified parts of digestive tract (ICD-10) Social History What is your current living situation?: I presently have a place to live Problems where you live: no known problems Problems where you live details: na In the past 12 months, utilities in danger of being shut off: no In past 12 months, lack of transportation kept you from medical appts, meetings, work, or getting things needed for daily living: no In the past 12 mos, have been you worried that your food would run out before you had money to buy more?: never true In the past 12 mos, the food you bought just didn't last and you didn't have money to buy more?: never true Highest level of school completed/degree received: high school graduate Smoking Status: Never smoker Do you use any of these nicotine containing products: None Second hand tobacco smoke exposure: No How often do you have a drink containing alcohol: never AUDIT-C Alcohol total score: 0 Non-prescribed substance use: denies use How often does anyone, including family, friends and others, physically hurt you: never How often does anyone, including family, friends and others, insult or talk down to you: never How often does anyone, including family, friends and others, threaten you with harm: never How often does anyone, including family, friends and others, scream or curse at you: never service: No Exam Narrative: Exam Narrative: Objective: Vital signs show no marked abnormality Alert orient x3 no distress no facial asymmetry noted Extraocular movements intact Mouth clear Neck is supple Chest clear Heart rhythm regular 2/6 systolic murmur occasional ectopic beat noted abdomen benign soft nontender extremities show normal focal neurologic finding normal strength sensation she has some bruising over her right knee and some mild soft tissue swelling. She has decent flexion extension of the knee however. Does have some pain on extremes of extension or flexion. Const: Vital Signs, click to edit/add: Vital Signs - 24 hr 01/25/25 12:25 01/25/25 12:50 Temperature 97.8 F Pulse Rate [Right Pulse Oximeter] 77 Respiratory Rate 18 Blood Pressure [Ri ght Upper Arm] 137/94 H Pulse Oximetry 99 98 Oxygen Delivery Me thod Room Air Course Vital Signs Vital signs: Initial Vital Signs Temperature 97.8 F 01/25/25 12:25 Temperature Source Temporal Artery Scan 01/25/25 12:25 Pulse Rate 77 01/25/25 12:25 Respiratory Rate 18 01/25/25 12:25 Blood Pressure 137/94 H 01/25/25 12:25 Blood Pressure Mean 108 H 01/25/25 12:25 Blood Pressure Position Sitting 01/25/25 12:25 Pulse Oximetry 99 01/25/25 12:25 Oxygen Delivery Method Room Air 01/25/25 12:25 Vital Signs Temperature 97.8 F 01/25/25 12:25 Pulse Rate 77 01/25/25 12:25 Respiratory Rate 18 01/25/25 12:25 Blood Pressure 137/94 H 01/25/25 12:25 Pulse Oximetry 99 01/25/25 12:25 Oxygen Delivery Method Room Air 01/25/25 12:25 Temperature 97.8 F 01/25/25 12:25 Pulse Rate 77 01/25/25 12:25 Respiratory Rate 18 01/25/25 12:25 Blood Pressure 137/94 H 01/25/25 12:25 Pulse Oximetry 98 01/25/25 12:50 Oxygen Delivery Method Room Air 01/25/25 12:25 Medications Administered Medications: Generic Name Dose Route Start Last Admin Trade Name Freq PRN Reason Stop Dose Admin Potassium Chloride 10 meq in 100 mls @ 100 mls/hr 01/25/25 13:45 01/25/25 14:22 Potassium Chloride IVPB 01/25/25 16:14 100 mls/hr Q90M GIFTY Administration Discontinued Medications Generic Name Dose Route Start Last Admin Trade Name Freq PRN Reason Stop Dose Admin Sodium Chloride 500 mls @ 500 mls/hr 01/25/25 12:37 01/25/25 13:35 0.9 % Sodium Chloride 500 Ml IV 01/25/25 13:36 500 mls/hr .Q1H ONE Administration Medical Decision Making [facility] Narrative Medical decision making narrative: [age] year white female who lives independently had history of stroke couple of months ago, now with a fall last night and then weakness this morning. She does appear to have any urinary tract symptoms has had no cough or fever. Has no chest pain or breathing problem no focal neurologic complaint. She does report her knee bothers her a little bit on the right. She has been ambulatory. At this point I think it be reasonable to do his head CT follow-up, would also do an x-ray of her right knee check electrolytes labs EKG troponin give some normal saline hydration 500 mL. Disposition pending findings above. Differential would include new stroke, dehydration, electrolyte abnormalities such as hypokalemia, metabolic disorder. Addendum 1:40 p.m.: Patient appears to have a lot artifact on her EKG she may be in an AFib pattern her rate is controlled at 68 however she is on beta-more she is also on Eliquis. Do not know when this would have occurred do not believe she needs cardioversion at this time she is quite hypokalemic and I think correcting that be appropriate then follow up with regular physician in the next couple of days to reassess would be reasonable as well. Her x-ray of her knee by my independent read looks unremarkable. In her head CT scan looks like no new stroke. If her laboratory studies come back reasonable and we replaced her potassium with 210 local in bumps of potassium IV I think she could follow up with regular doctor in the next 2-3 days reassess light activity continue her same medications. May need Cardiology consultation at some point. A given that her rate is controlled she is anticoagulated on think she needs that currently. Also can have any timing of the AFib so I think observation be appropriate also her hemodynamics look stable. Of note is the patient does report and her family that she is either in paroxysmal atrial fibrillation or has constant atrial fibrillation. She is anticoagulated and beta blocked. Lab Data Labs: Lab Results 01/25/25 Range/Units 12:50 WBC 5.43 (4.50-11.00) K/uL RBC 3.73 L (4.00-5.20) m/uL Hgb 10.6 L (12.0-16.0) gm/dL Hct 31.7 L (33.0-51.0) % MCV 85 (80-100) fL MCH 28 (26-34) pg MCHC 33 (32-36) gm/dL RDW Coeff of Camron 13.4 (11.5-15.5) % Plt Count 207 (140-440) K/uL Neut % (Auto) 76.3 H (42.0-72.0) % Lymph % (Auto) 13.8 L (20-44) % Preble % (Auto) 8.8 (0.0-11.0) % Eos % (Auto) 0.7 (0.0-7.0) % Baso % (Auto) 0.2 (0.0-3.0) % Neut # (Auto) 4.10 (1.7-7.0) K/uL Lymph # (Auto) 0.70 L (0.90-2.90) K/uL Preble # (Auto) 0.50 (0.00-0.90) K/UL Eos # (Auto) 0.04 (0.00-0.50) K/uL Baso # (Auto) 0.01 (0.00-0.30) K/uL Abs Immat Gran (auto) 0.01 (0.00-0.30) K/uL Imm/Tot Granulo (auto) 0.2 % INR 1.40 H (0.91-1.10) APTT 29 (23-33) Seconds Sodium 134 L (135-149) mmol/L Potassium 2.8 L* (3.6-5.1) mmol/L Chloride 99 (96-114) mmol/L Carbon Dioxide 25 (20-32) mmol/L Anion Gap 10 (7-15) mEq/L BUN 18 (7-30) mg/dL Creatinine 1.0 (0.5-1.5) mg/dL Estimated Creat Clear 39.20 Estimated GFR 56 ml/min Glucose 138 H (60-115) mg/dL Calcium 10.1 (8.4-10.6) mg/dL Total Bilirubin 1.0 (0.1-1.5) mg/dL Direct Bilirubin 0.2 (0.0-0.5) mg/dL AST 24 (12-35) U/L ALT 16 (4-35) U/L Alkaline Phosphatase 66 (40-150) U/L NT-Pro-B Natriuret Pep 2410 H (See Note) pg/mL Total Protein 6.0 (6.0-8.3) g/dL Albumin 3.4 (3.3-5.0) g/dL SARS-CoV-2 (PCR) Negative SARS-CoV-2 (Negative) Influenza Type A (PCR) Negative PCR FLU A (Negative) Influenza Type B (PCR) Negative PCR FLU B (Negative) RSV (PCR) Negative PCR RSV (Negative) POC Troponin I 0.02 (0.01-0.04) ng/ml Discharge Plan Discharge Clinical Impression: History of stroke, Weakness, Acute pain of right knee, Acute hypokalemia Patient Disposition: Home w/ Parent or Adult Condition: Stable Additional Instructions: Recommend follow-up with regular doctor next 2-3 days to discuss your heart rhythm to get a repeat EKG as well as recheck your potassium. Continue on your same medications including her blood thinner. Activity Level: Light activity Discharge Diet: Regular Prescriptions: No Action Eliquis 5 mg tablet 5 mg PO BID aspirin 81 mg tablet,delayed release (DR/EC) 81 mg PO DAILY Rx Instructions: Once daily atenolol 50 mg tablet 50 mg PO DAILY Rx Instructions: Take 1 Tablet (50 mg) by mouth once daily. chlorthalidone 25 mg tablet 25 mg PO DAILY Rx Instructions: Take 1 Tablet (25 mg) by mouth once daily. clonidine HCl 0.2 mg tablet 0.2 mg PO BID Rx Instructions: Take 1 Tablet (0.2 mg) by mouth two times daily. cyanocobalamin (vitamin B-12) 500 mcg tablet 500 mcg PO DAILY Rx Instructions: Take 1 tablet by mouth once daily. losartan 100 mg tablet 100 mg PO DAILY Rx Instructions: Take 1 Tablet (100 mg) by mouth once daily. cholecalciferol (vitamin D3) 50 mcg (2,000 unit) capsule 2,000 unit PO DAILY Rx Instructions: Take 1 capsule by mouth once daily. pravastatin 10 mg tablet 10 mg PO DAILY Jardiance 10 mg Tablet 10 mg PO DAILY Qty: 30 0RF cephalexin 500 mg capsule 500 mg PO BID Qty: 10 0RF potassium chloride [Klor-Con M20] 20 mEq tablet,ER particles/crystals 40 meq PO DAILY Qty: 60 0RF Follow Up/Referrals: Meg Oconnell DO [Primary Care Provider, Family Practice] Stand Alone Forms: [employer] Info Instructions
[2025-01-25 13:01] LABS: Hematocrit 31.7 % (33.0-51.0); Hemoglobin* 10.6 gm/dL (12.0-16.0); Immature Granulocytes Abs Auto 0.01 K/uL (0.00-0.30); Immature Granulocytes Pct Auto 0.2 %; Mean Corpuscular HGB Conc 33 gm/dL (32-36); Mean Corpuscular Hemoglobin 28 pg (26-34); Mean Corpuscular Volume 85 fL (80-100); RDW Coefficient of Variation % 13.4 % (11.5-15.5); Red Blood Count 3.73 m/uL (4.00-5.20); White Blood Count* 5.43 K/uL (4.50-11.00)
[2025-01-25 13:02] LABS: Lymphocytes Absolute Auto 0.70 K/uL (0.90-2.90); Slide Review Reflex No
[2025-01-25 13:13] LABS: Troponin, Point-of-Care* 0.02 ng/ml (0.01-0.04)
[2025-01-25 13:17] LABS: Albumin* 3.4 g/dL (3.3-5.0); Chloride* 99 mmol/L (96-114); Sodium* 134 mmol/L (135-149)
[2025-01-25 13:19] LABS: Blood Urea Nitrogen* 18 mg/dL (7-30); Creatinine* 1.0 mg/dL (0.5-1.5); Est. Creatinine Clearance* 39.20; Estimated Glomerular Filt Rate 56 ml/min
[2025-01-25 13:20] LABS: Alanine Aminotransferase* 16 U/L (4-35); Alkaline Phosphatase* 66 U/L (40-150); Anion Gap 10 mEq/L (7-15); Aspartate Amino Transferase* 24 U/L (12-35); Bilirubin Direct* 0.2 mg/dL (0.0-0.5); Bilirubin Total* 1.0 mg/dL (0.1-1.5); Calcium* 10.1 mg/dL (8.4-10.6); Carbon Dioxide* 25 mmol/L (20-32); Glucose* 138 mg/dL (60-115); Total Protein* 6.0 g/dL (6.0-8.3)
[2025-01-25 13:32] LABS: NT Pro B Type NatriureticPept* 2410 pg/mL (See Note); Potassium* 2.8 mmol/L (3.6-5.1)
[2025-01-25 13:34] LABS: INR 1.40 (0.91-1.10); Prothrombin Time 18.1 Seconds
[2025-01-25] MEDS: 0.9 % SODIUM CHLORIDE 500 ML 500 ML IV (13:35)
[2025-01-25 13:38] LABS: PCR FLU A Negative PCR FLU A (Negative); PCR FLU B Negative PCR FLU B (Negative); PCR RSV Negative PCR RSV (Negative); SARS PCR* Negative SARS-CoV-2 (Negative)
[2025-01-25] MEDS: POTASSIUM CHLORIDE 10 MEQ/100 ML PIGGYBACK 100 MEQ IVPB ×2 (14:22→15:19)
== END 2025-01-25 16:36 | disposition home or self-care (01) ==
PROVIDERS: Emergency Provider Family Medicine; PCP Family Medicine
DX: R53.1 Weakness (principal); M25.561 Pain in right knee; E87.6 Hypokalemia
CPT/HCPCS: 36415; 70450; 73560; 73562; 80048; 80076; 83880; 84484; 85025; 85610; 85730; 87631; 93005; 94761; 96365; 99285; J3480; J7030